=== PATIENT | female | born 1965 | race African-American/Black ===

== ENCOUNTER 2017-12-06 11:15 | Inpatient (IN) | payer OTHER ==
[2017-12-06 12:02] VITALS: BMI 29.2
--- NOTE | 2017-12-06 14:10 | HP ---
COWS - Scale Resting Pulse: 0= [place] 80 or Below Sweatin=Flushed/Facial Moisture Restless Observation: 3= Extraneous Movement Pupil Size: 1= Pupils >than Normal Bone or Joint Aches: 2= Severe Diffuse Aches Runny Nose/ Eye Tearin= Runny Nose/Eyes GI Upset > 30mins: 3= Vomiting/Diarrhea Tremor Observation: 2= Slight Tremor Visible Yawning Observation: 1= 1-2x During Session Anxiety or Irritability: 2=Irritable/Anxious Goose Flesh Skin: 0=Smooth Skin COWS Score: 18 CIWA Score - CIWA Score Nausea/Vomitin Muscle Tremors: 3 Anxiety: 3 Agitation: 3 Paroxysmal Sweats: 2 Orientation: 0-Oriented Tacttile Disturbances: 2-Mild Itch/Numbness/Burn Auditory Disturbances: 2-Mild Harshness/Frighten Visual Disturbances: 0-None Headache: 2-Mild CIWA-Ar Total Score: 20 Admission ROS BHS - HPI Chief Complaint: i need help to stop using heroin and alcohol Allergies/Adverse Reactions: Allergies Allergy/AdvReac Type Severity Reaction Status Date / Time tomato Allergy Severe Hives Verified 12/06/17 14:04 No Known Drug Allergies Allergy Verified 12/06/17 14:04 History of Present Illness: this 52 years old female with heroin dependence and alcohol dependence,seeking detox,withdrawal symptom,hard of hearing, history of asthma,hard of hearing,schizophrenia no significant period of sobriety nicotine dependence positive ppd Exam Limitations: No Limitations - Ebola screening Have you traveled outside of the country in the last 21 days: No (N) Have you had contact with anyone from an Ebola affected area: No Have you been sick,other than usual withdrawal symptoms: No Do you have a fever: No - Review of Systems Constitutional: Chills, Diaphoresis, Loss of Appetite, Night Sweats, Changes in sleep, Weakness EENT: reports: Tearing, Nose Congestion, Other (hard of hearing since childhood) Respiratory: reports: No Symptoms reported Cardiac: reports: No Symptoms Reported GI: reports: Diarrhea, Nausea, Vomiting, Abdominal cramping : reports: No Symptoms Reported Musculoskeletal: reports: Back Pain, Muscle Pain, Joint Stiffness Integumentary: reports: No Symptoms Reported Neuro: reports: Headache, Tremors Endocrine: reports: No Symptoms Reported Hematology: reports: No Symptoms Reported Psychiatric: reports: other (schizophrenia) Patient History - Patient Medical History Hx Anemia: No Hx Asthma: Yes (Pt is on MDI) Hx Chronic Obstructive Pulmonary Disease (COPD): No Hx Cancer: No Hx Cardiac Disorders: No Hx Congestive Heart Failure: No Hx Hypertension: No Hx Hypercholesterolemia: No Hx Pacemaker: No HX Cerebrovascular Accident: No Hx Seizures: No Hx Diabetes: No Hx Gastrointestinal Disorders: No Hx Liver Disease: No Hx Genitourinary Disorders: No Hx Sexually Transmitted Disorders: No Hx Renal Disease (ESRD): No Hx Thyroid Disease: No Hx Human Immunodeficiency Virus (HIV): No (last 06/14) Hx Hepatitis C: No Hx Depression: Yes Hx Suicide Attempt: No Hx Bipolar Disorder: No Hx Schizophrenia: Yes Other Medical History: no suicidal,no homicidal - Patient Surgical History Past Surgical History: No - PPD History Previous Implant?: Yes Documented Results: Positive w/o proof PPD to be Administered?: No - Reproductive History Patient is a Female of Child Bearing Age (11 -55 yrs old): Yes Patient : No - Smoking Cessation Smoking history: Current every day smoker Have you smoked in the past 12 months: Yes Aproximately how many cigarettes per day: 12 Hx Chewing Tobacco Use: No Initiated information on smoking cessation: Yes 'Breaking Loose' booklet given: 12/06/17 - Substances Abused Heroin Route: Inhalation Frequency: Daily Amount used: 3 bags Age of first use: 34 Date of Last Use: 12/06/17 Alcohol Route: Oral Frequency: Daily Amount used: 6pk beer Age of first use: 19 Date of Last Use: 12/06/17 Family Disease History - Family Disease History Family History: Denies Admission Physical Exam [facility] - Vital Signs Vital Signs: Vital Signs - 24 hr 12/06/17 11:59 Temperature 96.8 F L Pulse Rate 72 Respiratory 18 Rate Blood Pressure 140/78 - Physical General Appearance: Yes: Moderate Distress, Tremorous, Irritable, Sweating, Anxious HEENTM: Yes: KEN, Pharynx Normal, Photophobia (hard of hearing since childhood) Respiratory: Yes: Lungs Clear, Normal Breath Sounds, No Respiratory Distress Neck: Yes: Within Normal Limits, Supple, Trachea in good position Breast: Yes: Breast Exam Deferred Cardiology: Yes: Within Normal Limits, Regular Rhythm, Regular Rate, S1, S2 Abdominal: Yes: Within Normal Limits, Non Tender, Flat, Soft Genitourinary: Yes: Within Normal Limits Back: Yes: Muscle Spasm Musculoskeletal: Yes: Back pain, Joint Stiffness, Muscle Pain Extremities: Yes: Tremors Neurological: Yes: Within Normal Limits, [employer] consultant II-XII NML intact, Fully Oriented, Alert Integumentary: Yes: Dry Lymphatic: Yes: Within Normal Limits - Diagnostic (1) Opioid dependence with withdrawal Current Visit: Yes Status: Acute (2) Alcohol dependence with uncomplicated withdrawal Current Visit: Yes Status: Acute (3) Hard of hearing Current Visit: Yes Status: Acute (4) Asthma Current Visit: Yes Status: Acute (5) Paranoid schizophrenia Current Visit: No Status: Acute (6) Nicotine dependence Current Visit: Yes Status: Acute Cleared for Admission [facility] - Detox or Rehab [facility] Level of Care: Medically Managed Detox Regimen/Protocol: Methadone/Librium [facility] Breath Alcohol Content Breath Alcohol Content: 0 Urine Pregancy Test - Result Urine Test Results: Negative- NO Line Present Urine Drug Screen - Results Drug Screen Negative: No Urine Drug Screen Results: OPI-Opiates
[2017-12-06] MEDS ORDERED: P-EPHED 60MG/TRIPROLIDI 2.5MG TABLET PO PRN (14:27)
[2017-12-06] MEDS ORDERED: MAGNESIUM HYDROX 2400MG/30ML ORAL SUSPENSION 30 ML CUP PO PRN (14:27)
[2017-12-06] MEDS ORDERED: MAGNESIUM CITRATE 300 ML BOTTLE PO PRN (14:27)
[2017-12-06] MEDS ORDERED: guaiFENesin/D-METHORPHAN HB 10 ML UNIT-DOSE CUPS PO PRN (14:27)
[2017-12-06] MEDS ORDERED: hydrOXYzine PAMOATE 25 MG CAPSULE (FP) PO PRN (14:27)
[2017-12-06] MEDS ORDERED: chlordiazePOXIDE HCL 25 MG CAPSULE PO PRN (14:27)
[2017-12-06] MEDS ORDERED: MAG HYDROX/AL HYDROX/SIMETH 30 ML UNIT-DOSE CUP PO PRN (14:27)
[2017-12-06] MEDS ORDERED: IBUPROFEN 400 MG TABLET (FP) PO PRN (14:27)
[2017-12-06] MEDS ORDERED: LOPERAMIDE HCL 2 MG CAPSULE PO PRN (14:27)
[2017-12-06] MEDS ORDERED: MENTHOL/PHENOL 1 EACH UD MM PRN (14:27)
[2017-12-06] MEDS ORDERED: ALBUTEROL SO4 18 GM HFA INHALER IH PRN (14:32)
[2017-12-06] MEDS ORDERED: METHADONE HCL 10 MG TABLET (FOR DETOX USE ONLY) PO ONE ×2 (16:15→23:00)
[2017-12-06] MEDS: chlordiazePOXIDE HCL 25 MG CAPSULE PO SCH ×2 (16:56→22:32)
[2017-12-06] MEDS: THIAMINE HCL 100 MG TABLET (FP) PO SCH (22:32)
[2017-12-07 05:04] LABS: URINE APPEARANCE TURBID; URINE BILIRUBIN NEGATIVE (NEGATIVE); URINE BLOOD NEGATIVE (NEGATIVE); URINE COLOR AMBER; URINE GLUCOSE (UA) NEGATIVE (NEGATIVE); URINE KETONE NEGATIVE (NEGATIVE); URINE LEUK ESTERASE NEGATIVE (NEGATIVE); URINE NITRITE NEGATIVE (NEGATIVE); URINE PROTEIN NEGATIVE (NEGATIVE)
[2017-12-07] MEDS: chlordiazePOXIDE HCL 25 MG CAPSULE PO SCH (08:26)
--- NOTE | 2017-12-07 09:59 | PN ---
BHS Progress Note Note: pt states she does not drink any alcohol and only uses heroin. pt states she only said she drinks to get in. Librium d/c and pt in agreement.
[2017-12-07] MEDS ORDERED: METHADONE HCL 10 MG TABLET (FOR DETOX USE ONLY) PO SCH (10:00)
[2017-12-07 10:17] LABS: CHLORIDE 112 mmol/L (98-107); SODIUM 146 mmol/L (136-145)
[2017-12-07 10:26] LABS: ALK PHOS 95 U/L (45-117); ANION GAP 5 (8-16); BILIRUBIN,TOTAL 0.4 mg/dL (0.2-1.0); BLOOD UREA NITROGEN 17 mg/dL (7-18); CALCIUM 8.3 mg/dL (8.5-10.1); CO2 29 mmol/L (21-32); CREATININE 0.5 mg/dL (0.55-1.02); GLUCOSE,RANDOM 81 mg/dL (74-106); SGOT/AST 9 U/L (15-37); SGPT/ALT 33 U/L (12-78); TOT PROT 5.8 g/dl (6.4-8.2)
[2017-12-07 10:34] LABS: HEMATOCRIT 39.5 % (32.4-45.2); HEMOGLOBIN 12.4 GM/dL (10.7-15.3); MCH 26.9 pg (25.7-33.7); MCHC 31.4 g/dl (32.0-36.0); MEAN CELL VOLUME 85.7 fl (80-96); MEAN PLT VOLUME 9.4 fl (7.5-11.1); PLATELET COUNT 197 K/MM3 (134-434); RBC 4.61 M/mm3 (3.60-5.2); RDW 14.6 % (11.6-15.6); WHITE BLOOD COUNT 6.3 K/mm3 (4.0-10.0)
--- NOTE | 2017-12-07 11:27 | PN ---
BHS COWS - Scale Resting Pulse: 1= [place] 81-100 Sweatin=Flushed/Facial Moisture Restless Observation: 1= Difficult to Sit Still Pupil Size: 0= Normal to Room Light Bone or Joint Aches: 2= Severe Diffuse Aches Runny Nose/ Eye Tearin= Nasal Congestion GI Upset > 30mins: 0= None Tremor Observation of Outstretched Hands: 4= Gross Tremor/Twitching Yawning Observation: 2= >3x During Session Anxiety or Irritability: 2=Irritable/Anxious Goose Flesh Skin: 0=Smooth Skin COWS Score: 15 BHS Progress Note (SOAP) Subjective: interrupted sleep agitation restless I dont drink any alcohol and I dont want the librium. I will need the methadone Objective: 12/07/17 11:29 Vital Signs Temperature 97.1 F L 12/07/17 06:00 Pulse Rate 55 L 12/07/17 06:00 Respiratory Rate 18 12/07/17 06:00 Blood Pressure 121/71 12/07/17 06:00 O2 Sat by Pulse Oximetry (%) Laboratory Tests 12/06/17 12/07/17 12/07/17 06:30 08:00 08:00 WBC 6.3 RBC 4.61 Hgb 12.4 Hct 39.5 MCV 85.7 MCH 26.9 MCHC 31.4 L RDW 14.6 Plt Count 197 MPV 9.4 Sodium 146 H Potassium 4.0 Chloride 112 H Carbon Dioxide 29 Anion Gap 5 L BUN 17 D Creatinine 0.5 L D Creat Clearance w eGFR > 60 Random Glucose 81 Calcium 8.3 L Total Bilirubin 0.4 D AST 9 L D ALT 33 Alkaline Phosphatase 95 Total Protein 5.8 L Albumin 3.0 L Urine Color Zaria Urine Appearance Turbid Urine pH 5.0 Ur Specific [place] 1.020 Urine Protein Negative Urine Glucose (UA) Negative Urine Ketones Negative Urine Blood Negative Urine Nitrite Negative Urine Bilirubin Negative Urine Urobilinogen 2.0 H Ur Leukocyte Esterase Negative aaox3 ambulating no acute distress Assessment: 12/07/17 11:29 withdrawal sx Plan: continue detox librium d/c continue methadone taper increase fluids
[2017-12-07] MEDS: PRENATAL VITAMINS W/ FOLIC ACID TABLET (FP) PO SCH (11:36)
[2017-12-07] MEDS: amLODIPine BESYLATE 5 MG TABLET (FP) PO SCH (11:37)
[2017-12-07 12:45] LABS: RPR REACTIVE 1:1 (NONREACTIVE)
[2017-12-07 12:47] LABS: TREPONEMA ANTIBODY PREVIOUSLY REACTIVE (NONREACTIVE)
--- NOTE | 2017-12-07 15:19 | EKG ---
Test Reason : Blood Pressure : / mmHG Vent. Rate : 050 BPM Atrial Rate : 050 BPM P-R Int : 176 ms QRS Dur : 084 ms QT Int : 468 ms P-R-T Axes : 053 078 047 degrees QTc Int : 426 ms SINUS BRADYCARDIA POSSIBLE LEFT ATRIAL ENLARGEMENT BORDERLINE ECG NO PREVIOUS ECGS AVAILABLE Confirmed by Piyush Hill MD ([id number]) on 12/07/2017 3:19:05 PM Referred By: Confirmed By:Piyush Hill MD
--- NOTE | 2017-12-07 15:25 | CONSULT ---
[facility] Psychiatric Consult - Data Date of interview: 12/07/17 Admission source: [facility] Identifying data: Pt. is a 52 year old female, mother of seven, unemployed and on disability. This is one of multiple admissions for patient. Pt. admitted to for heroin and alcohol dependence. Substance Abuse History: Following information confirmed with patient: - Smoking Cessation. Smoking history: Current every day smoker. Have you smoked in the past 12 months: Yes. Aproximately how many cigarettes per day: 12. Hx Chewing Tobacco Use: No. Initiated information on smoking cessation: Yes. ' Breaking Loose' booklet given: 12/06/17. - Substances Abused. Heroin. Route: Inhalation. Frequency: Daily. Amount used: 3 bags. Age of first use: 34. Date of Last Use: 12/06/17. Alcohol. Route: Oral. Frequency: Daily. Amount used: 6pk beer. Age of first use: 19. Date of Last Use: 12/06/17 Medical History: Asthma Psychiatric History: Pt. reports h/o one psychiatric hospitalization, " a long time ago." Reports taking risperdal 2mg qhs since may but has not taken it everyday due to a lack of pills. States last taking risperdal 10 days ago. Reports a diagnosis of schizophrenia and bipolar disorder. Pt. denies OPC and suicide attempts. Pt. denies sucidial and homicidal ideation. Physical/Sexual Abuse/Trauma History: Denies. Mental Status Exam - Mental Status Exam Alert and Oriented to: Time, Place, Person Cognitive Function: Good Patient Appearance: Well Groomed Mood: Euthymic Affect: Mood Congruent Patient Behavior: Cooperative Speech Pattern: Delayed Voice Loudness: Normal Thought Process: Goal Oriented Thought Disorder: Not Present Hallucinations: Denies Suicidal Ideation: Denies Homicidal Ideation: Denies Insight/Judgement: Poor Sleep: Fair Appetite: Fair Muscle strength/Tone: Normal Gait/Station: Normal Psychiatric Findings - Problem List ([place] 1, 2,3) (1) Opioid dependence with withdrawal Current Visit: Yes Status: Acute (2) Alcohol dependence with uncomplicated withdrawal Current Visit: Yes Status: Acute (3) Schizophrenia Current Visit: Yes Status: Chronic (4) Bipolar disorder Current Visit: Yes Status: Chronic (5) Nicotine dependence Current Visit: Yes Status: Chronic Qualifiers: Nicotine product type: cigarettes Substance use status: uncomplicated Qualified Code(s): F17.210 - Nicotine dependence, cigarettes, uncomplicated - Initial Treatment Plan Initial Treatment Plan: Psychoeducation provided. Detoxification in progress. Risperdal 1mg BID ordered. Pharmacy claims reviewed. Verbal consent given. Benefits and side effects discussed. Will continue to monitor.
[2017-12-07] MEDS ORDERED: chlordiazePOXIDE HCL 25 MG CAPSULE PO SCH (17:00)
[2017-12-07] MEDS ORDERED: risperiDONE 2 MG TABLET PO SCH (22:00)
[2017-12-07] MEDS: risperiDONE 1 MG TABLET (FP) PO SCH (22:37)
[2017-12-07] MEDS: THIAMINE HCL 100 MG TABLET (FP) PO SCH (22:37)
[2017-12-08] MEDS: PRENATAL VITAMINS W/ FOLIC ACID TABLET (FP) PO SCH (10:46)
[2017-12-08] MEDS: amLODIPine BESYLATE 5 MG TABLET (FP) PO SCH (10:46)
[2017-12-08] MEDS: risperiDONE 1 MG TABLET (FP) PO SCH ×2 (10:46→22:19)
[2017-12-08] MEDS: METHADONE HCL 5 MG TABLET (FOR DETOX USE ONLY) PO SCH (10:47)
--- NOTE | 2017-12-08 11:10 | PN ---
BHS COWS - Scale Resting Pulse: 0= [place] 80 or Below Sweatin= Chills/Flushing Restless Observation: 1= Difficult to Sit Still Pupil Size: 0= Normal to Room Light Bone or Joint Aches: 1= Mild Discomfort Runny Nose/ Eye Tearin= Nasal Congestion GI Upset > 30mins: 1= Stomach Cramp Tremor Observation of Outstretched Hands: 2= Slight Tremor Visible Yawning Observation: 0= None Anxiety or Irritability: 2=Irritable/Anxious Goose Flesh Skin: 0=Smooth Skin COWS Score: 9 BHS Progress Note (SOAP) Subjective: sleepless Objective: 12/08/17 11:08 in hallway, no acute distress mood guarded Laboratory Last Values WBC 6.3 K/mm3 (4.0-10.0) 12/07/17 08:00 RBC 4.61 M/mm3 (3.60-5.2) 12/07/17 08:00 Hgb 12.4 GM/dL (10.7-15.3) 12/07/17 08:00 Hct 39.5 % (32.4-45.2) 12/07/17 08:00 MCV 85.7 fl (80-96) 12/07/17 08:00 MCH 26.9 pg (25.7-33.7) 12/07/17 08:00 MCHC 31.4 g/dl (32.0-36.0) L 12/07/17 08:00 RDW 14.6 % (11.6-15.6) 12/07/17 08:00 Plt Count 197 K/MM3 (134-434) 12/07/17 08:00 MPV 9.4 fl (7.5-11.1) 12/07/17 08:00 Sodium 146 mmol/L (136-145) H 12/07/17 08:00 Potassium 4.0 mmol/L (3.5-5.1) 12/07/17 08:00 Chloride 112 mmol/L (98-107) H 12/07/17 08:00 Carbon Dioxide 29 mmol/L (21-32) 12/07/17 08:00 Anion Gap 5 (8-16) L 12/07/17 08:00 BUN 17 mg/dL (7-18) D 12/07/17 08:00 Creatinine 0.5 mg/dL (0.55-1.02) L D 12/07/17 08:00 Creat Clearance w eGFR > 60 (>60) 12/07/17 08:00 Random Glucose 81 mg/dL (74-106) 12/07/17 08:00 Calcium 8.3 mg/dL (8.5-10.1) L 12/07/17 08:00 Total Bilirubin 0.4 mg/dL (0.2-1.0) D 12/07/17 08:00 AST 9 U/L (15-37) L D 12/07/17 08:00 ALT 33 U/L (12-78) 12/07/17 08:00 Alkaline Phosphatase 95 U/L (45-117) 12/07/17 08:00 Total Protein 5.8 g/dl (6.4-8.2) L 12/07/17 08:00 Albumin 3.0 g/dl (3.4-5.0) L 12/07/17 08:00 Urine Color Zaria 12/06/17 06:30 Urine Appearance Turbid 12/06/17 06:30 Urine pH 5.0 (5.0-8.0) 12/06/17 06:30 Ur Specific [place] 1.020 (1.001-1.035) 12/06/17 06:30 Urine Protein Negative (NEGATIVE) 12/06/17 06:30 Urine Glucose (UA) Negative (NEGATIVE) 12/06/17 06:30 Urine Ketones Negative (NEGATIVE) 12/06/17 06:30 Urine Blood Negative (NEGATIVE) 12/06/17 06:30 Urine Nitrite Negative (NEGATIVE) 12/06/17 06:30 Urine Bilirubin Negative (NEGATIVE) 12/06/17 06:30 Urine Urobilinogen 2.0 mg/dL (0.2-1.0) H 12/06/17 06:30 Ur Leukocyte Esterase Negative (NEGATIVE) 12/06/17 06:30 RPR Titer Reactive 1:1 (NONREACTIVE) H D 12/07/17 08:00 T.pallidum Ab (MHA) Previously reactive (NONREACTIVE) 12/07/17 08:00 HIV 1&2 Antibody Screen Negative 12/06/17 08:00 HIV P24 Antigen Negative 12/06/17 08:00 labs noted Assessment: 12/08/17 11:10 withdrawal sx Plan: continue detox
[2017-12-08] MEDS ORDERED: chlordiazePOXIDE 5 MG CAPSULE PO SCH (17:00)
[2017-12-08] MEDS: THIAMINE HCL 100 MG TABLET (FP) PO SCH (22:19)
[2017-12-09] MEDS: amLODIPine BESYLATE 5 MG TABLET (FP) PO SCH (11:24)
[2017-12-09] MEDS: METHADONE HCL 5 MG TABLET (FOR DETOX USE ONLY) PO SCH (11:24)
[2017-12-09] MEDS: risperiDONE 1 MG TABLET (FP) PO SCH ×2 (11:24→23:16)
[2017-12-09] MEDS: PRENATAL VITAMINS W/ FOLIC ACID TABLET (FP) PO SCH (11:24)
--- NOTE | 2017-12-09 12:42 | PN ---
BHS Progress Note (SOAP) Subjective: sweats feeling fine anxiety Objective: 12/09/17 12:41 Vital Signs Temperature 98.4 F 12/09/17 10:17 Pulse Rate 77 12/09/17 10:17 Respiratory Rate 18 12/09/17 10:17 Blood Pressure 139/85 12/09/17 10:17 O2 Sat by Pulse Oximetry (%) aaox3 ambulating no acute distress Assessment: 12/09/17 12:42 mild withdrawal sx Plan: continue detox increase fluids
[2017-12-09] MEDS ORDERED: chlordiazePOXIDE HCL 10 MG CAPSULE PO SCH (17:00)
[2017-12-09] MEDS: THIAMINE HCL 100 MG TABLET (FP) PO SCH (23:16)
[2017-12-10] MEDS: ACETAMINOPHEN 325 MG TABLET (FP) PO PRN ×2 (07:04→22:35)
[2017-12-10] MEDS ORDERED: METHADONE HCL 10 MG TABLET (FOR DETOX USE ONLY) PO SCH (10:00)
[2017-12-10] MEDS: amLODIPine BESYLATE 5 MG TABLET (FP) PO SCH (10:52)
[2017-12-10] MEDS: PRENATAL VITAMINS W/ FOLIC ACID TABLET (FP) PO SCH (10:52)
[2017-12-10] MEDS: risperiDONE 1 MG TABLET (FP) PO SCH ×2 (10:52→22:33)
--- NOTE | 2017-12-10 13:41 | PN ---
BHS Progress Note (SOAP) Subjective: feeling good little sweats Objective: 12/10/17 13:37 Vital Signs Temperature 99.7 F H 12/10/17 10:44 Pulse Rate 74 12/10/17 10:44 Respiratory Rate 18 12/10/17 10:44 Blood Pressure 111/68 12/10/17 10:44 O2 Sat by Pulse Oximetry (%) aaox3 ambulating no acute distress Assessment: 12/10/17 13:41 withdrawal sx Plan: continue detox d/c in am
[2017-12-10] MEDS: THIAMINE HCL 100 MG TABLET (FP) PO SCH (22:34)
[2017-12-11] MEDS ORDERED: METHADONE HCL 5 MG TABLET (FOR DETOX USE ONLY) PO SCH (06:00)
--- NOTE | 2017-12-11 08:39 | DS ---
[facility] Detox Discharge Summary Admission Date: 12/06/17 Discharge Date: 12/11/17 - History Present History: Alcohol Dependence, Opioid Dependence Pertinent Past History: Asthma Hard of hearing - Physical Exam Results Vital Signs: Vital Signs Temperature 98.2 F 12/11/17 06:00 Pulse Rate 66 12/11/17 06:00 Respiratory Rate 18 12/11/17 06:00 Blood Pressure 125/84 12/11/17 06:00 O2 Sat by Pulse Oximetry (%) Pertinent Admission Physical Exam Findings: withdrawal sx Vital Signs Temperature 98.2 F 12/11/17 06:00 Pulse Rate 66 12/11/17 06:00 Respiratory Rate 18 12/11/17 06:00 Blood Pressure 125/84 12/11/17 06:00 O2 Sat by Pulse Oximetry (%) Laboratory Last Values WBC 6.3 K/mm3 (4.0-10.0) 12/07/17 08:00 RBC 4.61 M/mm3 (3.60-5.2) 12/07/17 08:00 Hgb 12.4 GM/dL (10.7-15.3) 12/07/17 08:00 Hct 39.5 % (32.4-45.2) 12/07/17 08:00 MCV 85.7 fl (80-96) 12/07/17 08:00 MCH 26.9 pg (25.7-33.7) 12/07/17 08:00 MCHC 31.4 g/dl (32.0-36.0) L 12/07/17 08:00 RDW 14.6 % (11.6-15.6) 12/07/17 08:00 Plt Count 197 K/MM3 (134-434) 12/07/17 08:00 MPV 9.4 fl (7.5-11.1) 12/07/17 08:00 Sodium 146 mmol/L (136-145) H 12/07/17 08:00 Potassium 4.0 mmol/L (3.5-5.1) 12/07/17 08:00 Chloride 112 mmol/L (98-107) H 12/07/17 08:00 Carbon Dioxide 29 mmol/L (21-32) 12/07/17 08:00 Anion Gap 5 (8-16) L 12/07/17 08:00 BUN 17 mg/dL (7-18) D 12/07/17 08:00 Creatinine 0.5 mg/dL (0.55-1.02) L D 12/07/17 08:00 Creat Clearance w eGFR > 60 (>60) 12/07/17 08:00 Random Glucose 81 mg/dL (74-106) 12/07/17 08:00 Calcium 8.3 mg/dL (8.5-10.1) L 12/07/17 08:00 Total Bilirubin 0.4 mg/dL (0.2-1.0) D 12/07/17 08:00 AST 9 U/L (15-37) L D 12/07/17 08:00 ALT 33 U/L (12-78) 12/07/17 08:00 Alkaline Phosphatase 95 U/L (45-117) 12/07/17 08:00 Total Protein 5.8 g/dl (6.4-8.2) L 12/07/17 08:00 Albumin 3.0 g/dl (3.4-5.0) L 12/07/17 08:00 Urine Color Zaria 12/06/17 06:30 Urine Appearance Turbid 12/06/17 06:30 Urine pH 5.0 (5.0-8.0) 12/06/17 06:30 Ur Specific [place] 1.020 (1.001-1.035) 12/06/17 06:30 Urine Protein Negative (NEGATIVE) 12/06/17 06:30 Urine Glucose (UA) Negative (NEGATIVE) 12/06/17 06:30 Urine Ketones Negative (NEGATIVE) 12/06/17 06:30 Urine Blood Negative (NEGATIVE) 12/06/17 06:30 Urine Nitrite Negative (NEGATIVE) 12/06/17 06:30 Urine Bilirubin Negative (NEGATIVE) 12/06/17 06:30 Urine Urobilinogen 2.0 mg/dL (0.2-1.0) H 12/06/17 06:30 Ur Leukocyte Esterase Negative (NEGATIVE) 12/06/17 06:30 RPR Titer Reactive 1:1 (NONREACTIVE) H D 12/07/17 08:00 T.pallidum Ab (MHA) Previously reactive (NONREACTIVE) 12/07/17 08:00 HIV 1&2 Antibody Screen Negative 12/06/17 08:00 HIV P24 Antigen Negative 12/06/17 08:00 labs noted - Treatment Hospital Course: Detox Protocol Followed, Detoxed Safely, Responded well, Discharged Condition Good, Rehab Referral Accepted Patient has Accepted a Rehab Referral to: [facility] re[facility] - [facility] - Medication Discharge Medications: Ambulatory Orders Albuterol Sulfate [Proair Hfa -] 2 inh PO Q6H PRN 03/06/15 Amlodipine Besylate [Norvasc -] 5 mg PO DAILY 12/06/17 Hydroxyzine HCl 50 mg PO HS 12/06/17 Risperidone [Risperdal -] 2 mg PO HS 12/06/17 - Diagnosis (1) Opioid dependence with withdrawal Current Visit: Yes Status: Acute (2) Nicotine dependence Current Visit: Yes Status: Chronic Qualifiers: Nicotine product type: cigarettes Substance use status: uncomplicated Qualified Code(s): F17.210 - Nicotine dependence, cigarettes, uncomplicated - AMA Did Patient Leave Against Medical Advice: No
[2017-12-11] MEDS: amLODIPine BESYLATE 5 MG TABLET (FP) PO SCH (10:41)
[2017-12-11] MEDS: risperiDONE 1 MG TABLET (FP) PO SCH (10:41)
[2017-12-11] MEDS: PRENATAL VITAMINS W/ FOLIC ACID TABLET (FP) PO SCH (10:41)
[2017-12-11 10:46] VITALS: BP 130/79; PULSE 79; TEMP 98.9
== END 2017-12-11 11:56 | disposition home or self-care (01) | DRG 773 ==
LOC: YASAS 11:15 → Y6N 15:08
PROVIDERS: ADMIT Internal Medicine; ATTEND Internal Medicine
PROC: HZ2ZZZZ Detoxification Services for Substance Abuse Treatment (ICD-10-PCS; principal; 2017-12-06)
DX: F11.23 Opioid dependence with withdrawal (principal); F17.210 Nicotine dependence, cigarettes, uncomplicated; F31.9 Bipolar disorder, unspecified; F20.0 Paranoid schizophrenia; I10 Essential (primary) hypertension; H91.90 Unspecified hearing loss, unspecified ear
CPT/HCPCS: 36415; 80053; 81003; 85027; 86593; 86780; 87389; 93005; 93010; J2794

== ENCOUNTER 2018-07-09 08:23 | Inpatient (IN) | payer OTHER ==
[2018-07-09 09:23] VITALS: BMI 29.2
--- NOTE | 2018-07-09 09:59 | HP ---
COWS - Scale Resting Pulse: 0= [place] 80 or Below Sweatin= No chills or Flushing Restless Observation: 1= Difficult to Sit Still Pupil Size: 0= Normal to Room Light Bone or Joint Aches: 1= Mild Discomfort Runny Nose/ Eye Tearin= Nasal Congestion GI Upset > 30mins: 1= Stomach Cramp Tremor Observation: 1= Tremor [place], Not Seen Yawning Observation: 1= 1-2x During Session Anxiety or Irritability: 1=Feels Anxious/Irritable Goose Flesh Skin: 0=Smooth Skin COWS Score: 7 Admission ROS BHS - HPI Chief Complaint: I want help, I want detox, I'm messing with that heroin again Allergies/Adverse Reactions: Allergies Allergy/AdvReac Type Severity Reaction Status Date / Time tomato Allergy Severe Hives Verified 12/06/17 14:04 No Known Drug Allergies Allergy Verified 12/06/17 14:04 History of Present Illness: 52 yo woman here for detox from opiates - patient was on [facility] methadone program but she went off it thinking she was moving to [place] with her daughter but plans changed - I spoke with TERI Witt, of Methadone Program who verified her last dose of methadone was on 06/28/18 and she would have to be re- evaluated for the program. She states she had a seizure a week ago from using and also an overdose which was a 'wake up' for her to get help. Exam Limitations: Clinical Condition - Ebola screening Have you traveled outside of the country in the last 21 days: No Have you had contact with anyone from an Ebola affected area: No Have you been sick,other than usual withdrawal symptoms: No - Review of Systems Constitutional: Loss of Appetite, Night Sweats, Changes in sleep EENT: reports: Nose Congestion, Other (reduced hearing) Respiratory: reports: No Symptoms reported Cardiac: reports: No Symptoms Reported GI: reports: Poor Appetite, Indigestion : reports: No Symptoms Reported Musculoskeletal: reports: Back Pain, Muscle Pain Integumentary: reports: No Symptoms Reported Neuro: reports: No Symptoms reported Endocrine: reports: No Symptoms Reported Hematology: reports: No Symptoms Reported Psychiatric: reports: Judgement Intact, Mood/Affect Appropiate Other Systems: Reviewed and Negative Patient History - Patient Medical History Hx Anemia: No Hx Asthma: Yes (Pt is on MDI) Hx Chronic Obstructive Pulmonary Disease (COPD): No Hx Cancer: No Hx Cardiac Disorders: No Hx Congestive Heart Failure: No Hx Hypertension: No Hx Hypercholesterolemia: No Hx Pacemaker: No HX Cerebrovascular Accident: No Hx Seizures: Yes (last time a week ago) Hx Diabetes: No Hx Gastrointestinal Disorders: No Hx Liver Disease: No Hx Genitourinary Disorders: No Hx Sexually Transmitted Disorders: No Hx Renal Disease (ESRD): No Hx Thyroid Disease: No Hx Human Immunodeficiency Virus (HIV): No (last 06/14) Hx Hepatitis C: No Hx Depression: Yes Hx Suicide Attempt: Yes (in her 20s) Hx Bipolar Disorder: No Hx Schizophrenia: Yes (hospitalized in her 20s, sees psych [facility]) - Patient Surgical History Past Surgical History: No Hx Section: Yes (21 yrs ago.) - PPD History Previous Implant?: Yes Documented Results: Positive w/o proof Date: 12/29/17 (CXR normal) PPD to be Administered?: No - Reproductive History Patient is a Female of Child Bearing Age (11 -55 yrs old): Yes - Smoking Cessation Smoking history: Current every day smoker Have you smoked in the past 12 months: Yes Aproximately how many cigarettes per day: 12 Hx Chewing Tobacco Use: No Initiated information on smoking cessation: Yes 'Breaking Loose' booklet given: 07/09/18 (give on floor) - Substance & Tx. History Hx Alcohol Use: No Hx Substance Use: Yes Substance Use Type: Cocaine, Heroin Hx Substance Use Treatment: Yes (detox, methadone program) - Substances Abused heroin Route: Inhalation Frequency: Daily Amount used: 4 bags Age of first use: 29 Date of Last Use: 07/08/18 cocaine Frequency: Daily Amount used: $400 Age of first use: 20 Date of Last Use: 07/08/18 alcohol Route: Oral Frequency: 1-3 times last 30 days Amount used: 1 shot Age of first use: 20 Date of Last Use: 07/06/18 Family Disease History - Family Disease History Family History: Denies Family Disease History: Other: Father (murdered), Mother (murdered), Brother ( seven), Sister (nine), Son (four), Daughter (three) Admission Physical Exam BHS - Vital Signs Vital Signs: Vital Signs - 24 hr 07/09/18 09:15 Temperature 98.4 F Pulse Rate 70 Respiratory 20 Rate Blood Pressure 159/83 - Physical General Appearance: Yes: Nourished, Appropriately Dressed, Moderate Distress, Anxious HEENTM: Yes: Normocephalic, Normal Voice, Pharynx Normal, Other (REDUCED HEARING ) Respiratory: Yes: Normal Breath Sounds, No Respiratory Distress Neck: Yes: No masses,lesions,Nodules, Supple Breast: Yes: Breast Exam Deferred Cardiology: Yes: Regular Rhythm, Regular Rate Abdominal: Yes: Flat, Soft Genitourinary: Yes: Hesitency Back: Yes: Normal Inspection Extremities: Yes: Normal Inspection, Non-Tender Neurological: Yes: Alert, Normal Mood/Affect, Normal Response Integumentary: Yes: Normal Color, Warm Lymphatic: Yes: Within Normal Limits - Diagnostic (1) Opioid dependence with withdrawal Current Visit: Yes Status: Acute (2) PPD positive Current Visit: Yes Status: Chronic (3) Cocaine dependence Current Visit: Yes Status: Chronic Qualifiers: Substance use status: uncomplicated Qualified Code(s): F14.20 - Cocaine dependence, uncomplicated (4) Hard of hearing Current Visit: Yes Status: Acute Qualifiers: Contralateral hearing status: unspecified (5) Asthma Current Visit: Yes Status: Chronic Qualifiers: Asthma severity: mild Asthma complication type: unspecified (6) Nicotine dependence Current Visit: Yes Status: Chronic Qualifiers: Nicotine product type: cigarettes Substance use status: uncomplicated Qualified Code(s): F17.210 - Nicotine dependence, cigarettes, uncomplicated Cleared for Admission [facility] - Detox or Rehab [facility] Level of Care: Medically Managed Detox Regimen/Protocol: Methadone [facility] Breath Alcohol Content Breath Alcohol Content: 0 Urine Pregancy Test - Result Urine Test Results: Negative- NO Line Present Urine Drug Screen - Results Urine Drug Screen Results: CAITLIN-Cocaine, OPI-Opiates, MTD-Methadone, OXY- Oxycodone
[2018-07-09] MEDS ORDERED: P-EPHED 60MG/TRIPROLIDI 2.5MG TABLET PO PRN (10:11)
[2018-07-09] MEDS ORDERED: guaiFENesin/D-METHORPHAN HB 10 ML UNIT-DOSE CUPS PO PRN (10:11)
[2018-07-09] MEDS ORDERED: ACETAMINOPHEN 325 MG TABLET (FP) PO PRN (10:11)
[2018-07-09] MEDS ORDERED: hydrOXYzine PAMOATE 25 MG CAPSULE (FP) PO PRN (10:11)
[2018-07-09] MEDS ORDERED: MAG HYDROX/AL HYDROX/SIMETH 30 ML UNIT-DOSE CUP PO PRN (10:11)
[2018-07-09] MEDS ORDERED: MAGNESIUM CITRATE 300 ML BOTTLE PO PRN (10:11)
[2018-07-09] MEDS ORDERED: NICOTINE POLACRILEX 2 MG GUM BUC PRN (10:11)
[2018-07-09] MEDS ORDERED: IBUPROFEN 400 MG TABLET (FP) PO PRN (10:11)
[2018-07-09] MEDS ORDERED: MENTHOL/PHENOL 1 EACH UD MM PRN (10:11)
[2018-07-09] MEDS ORDERED: LOPERAMIDE HCL 2 MG CAPSULE PO PRN (10:11)
[2018-07-09] MEDS ORDERED: diazePAM 5 MG TABLET PO PRN (10:11)
[2018-07-09] MEDS ORDERED: MAGNESIUM HYDROX 2400MG/30ML ORAL SUSPENSION 30 ML CUP PO PRN (10:11)
[2018-07-09] MEDS ORDERED: METHADONE HCL 10 MG TABLET (FOR DETOX USE ONLY) PO ONE ×2 (10:45→23:00)
[2018-07-09] MEDS: NICOTINE 21 MG/24 HOURS TOPICAL PATCH TD SCH (13:42)
[2018-07-09] MEDS: amLODIPine BESYLATE 5 MG TABLET (FP) PO SCH (13:42)
[2018-07-09] MEDS ORDERED: MELATONIN 5 MG TABLETS PO PRN (22:00)
[2018-07-09] MEDS ORDERED: THIAMINE HCL 100 MG TABLET (FP) PO SCH (22:00)
--- NOTE | 2018-07-10 08:57 | EKG ---
Test Reason : Blood Pressure : / mmHG Vent. Rate : 067 BPM Atrial Rate : 067 BPM P-R Int : 156 ms QRS Dur : 092 ms QT Int : 500 ms P-R-T Axes : 024 076 074 degrees QTc Int : 528 ms NORMAL SINUS RHYTHM PROLONGED QT ABNORMAL ECG WHEN COMPARED WITH ECG OF 06-DEC-2017 17:08, QT HAS LENGTHENED Confirmed by ISABELLA GODOY, KAVON ([id number]) on 07/10/2018 8:57:25 AM Referred By: Ildefonso Zhong Confirmed By:KAVON MASON MD
[2018-07-10] MEDS ORDERED: METHADONE HCL 10 MG TABLET (FOR DETOX USE ONLY) PO ONE (10:00)
[2018-07-10] MEDS ORDERED: PRENATAL VITAMINS W/ FOLIC ACID TABLET (FP) PO SCH (10:00)
[2018-07-10 10:52] LABS: HEMATOCRIT 41.1 % (32.4-45.2); HEMOGLOBIN 13.4 GM/dL (10.7-15.3); MCH 28.3 pg (25.7-33.7); MCHC 32.5 g/dl (32.0-36.0); MEAN PLT VOLUME 9.2 fl (7.5-11.1); PLATELET COUNT 188 K/MM3 (134-434); RBC 4.73 M/mm3 (3.60-5.2); RDW 13.6 % (11.6-15.6); WHITE BLOOD COUNT 8.4 K/mm3 (4.0-10.0)
[2018-07-10 11:00] LABS: ALBUMIN 3.4 g/dl (3.4-5.0); ALK PHOS 80 U/L (45-117); ANION GAP 4 (8-16); BILIRUBIN,TOTAL 0.4 mg/dL (0.2-1.0); BLOOD UREA NITROGEN 14 mg/dL (7-18); CALCIUM 8.9 mg/dL (8.5-10.1); CHLORIDE 115 mmol/L (98-107); CO2 32 mmol/L (21-32); CREATININE 0.7 mg/dL (0.55-1.02); GLUCOSE,RANDOM 82 mg/dL (74-106); POTASSIUM 3.9 mmol/L (3.5-5.1); SGOT/AST 12 U/L (15-37); SGPT/ALT 18 U/L (12-78); SODIUM 151 mmol/L (136-145); TOT PROT 6.3 g/dl (6.4-8.2)
[2018-07-10] MEDS: NICOTINE 21 MG/24 HOURS TOPICAL PATCH TD SCH (11:59)
[2018-07-10] MEDS: amLODIPine BESYLATE 5 MG TABLET (FP) PO SCH (12:00)
[2018-07-10 12:48] LABS: RPR REACTIVE 1:1 (NONREACTIVE)
[2018-07-10 12:49] LABS: TREPONEMA ANTIBODY PREVIOUSLY REACTIVE (NONREACTIVE)
[2018-07-10 14:06] VITALS: BP 141/76; PULSE 59; TEMP 98.2
--- NOTE | 2018-07-10 15:12 | CONSULT ---
[facility] Psychiatric Consult - Data Date of interview: 07/10/18 Admission source: self-referred Identifying data: Ms Ybarra is a 52 years old female seeking detox treatment for alcohol opioid and cocaine Substance Abuse History: Reports history of alcohol, heroin and cocaine use. Refer to addiction counselor's summary for furthr information Medical History: Significant for bronchial asthma, seizure disorder and PPD+. Smokes 12 cigarettes daily
--- NOTE | 2018-07-10 15:21 | PN ---
S COWS - Scale Resting Pulse: 0= [place] 80 or Below Sweatin=Flushed/Facial Moisture Restless Observation: 3= Extraneous Movement Pupil Size: 1= Pupils >than Normal Bone or Joint Aches: 1= Mild Discomfort Runny Nose/ Eye Tearin= Nasal Congestion GI Upset > 30mins: 2= Nausea/Diarrhea Tremor Observation of Outstretched Hands: 2= Slight Tremor Visible Yawning Observation: 1= 1-2x During Session Anxiety or Irritability: 2=Irritable/Anxious Goose Flesh Skin: 3=Piloerection COWS Score: 18 BHS Progress Note (SOAP) Subjective: Irritable, diarrhea, muscle aches Objective: 07/10/18 15:20 Vital Signs - 8 hr 07/10/18 07/10/18 10:46 14:03 Temperature 98.1 F 98.2 F Pulse Rate 54 L 59 L Respiratory 16 16 Rate Blood Pressure 159/75 141/76 Laboratory Last Values WBC 8.4 K/mm3 (4.0-10.0) 07/10/18 08:00 RBC 4.73 M/mm3 (3.60-5.2) 07/10/18 08:00 Hgb 13.4 GM/dL (10.7-15.3) 07/10/18 08:00 Hct 41.1 % (32.4-45.2) 07/10/18 08:00 MCV 87.0 fl (80-96) 07/10/18 08:00 MCH 28.3 pg (25.7-33.7) 07/10/18 08:00 MCHC 32.5 g/dl (32.0-36.0) 07/10/18 08:00 RDW 13.6 % (11.6-15.6) 07/10/18 08:00 Plt Count 188 K/MM3 (134-434) 07/10/18 08:00 MPV 9.2 fl (7.5-11.1) 07/10/18 08:00 Sodium 151 mmol/L (136-145) H 07/10/18 08:00 Potassium 3.9 mmol/L (3.5-5.1) 07/10/18 08:00 Chloride 115 mmol/L (98-107) H 07/10/18 08:00 Carbon Dioxide 32 mmol/L (21-32) 07/10/18 08:00 Anion Gap 4 (8-16) L 07/10/18 08:00 BUN 14 mg/dL (7-18) 07/10/18 08:00 Creatinine 0.7 mg/dL (0.55-1.02) 07/10/18 08:00 Creat Clearance w eGFR > 60 (>60) 07/10/18 08:00 Random Glucose 82 mg/dL (74-106) 07/10/18 08:00 Calcium 8.9 mg/dL (8.5-10.1) 07/10/18 08:00 Total Bilirubin 0.4 mg/dL (0.2-1.0) 07/10/18 08:00 AST 12 U/L (15-37) L 07/10/18 08:00 ALT 18 U/L (12-78) 07/10/18 08:00 Alkaline Phosphatase 80 U/L (45-117) 07/10/18 08:00 Total Protein 6.3 g/dl (6.4-8.2) L 07/10/18 08:00 Albumin 3.4 g/dl (3.4-5.0) 07/10/18 08:00 RPR Titer Reactive 1:1 (NONREACTIVE) H 07/10/18 08:00 T.pallidum Ab (MHA) Previously reactive (NONREACTIVE) 07/10/18 08:00 Labs noted-RPR Reactive h/o syphilis Assessment: 07/10/18 15:21 Withdrawal sx Plan: Continue detox
--- NOTE | 2018-07-10 15:23 | DS ---
[facility] Detox Discharge Summary Admission Date: 07/09/18 - Physical Exam Results Vital Signs: Vital Signs Temperature 98.2 F 07/10/18 14:03 Pulse Rate 59 L 07/10/18 14:03 Respiratory Rate 16 07/10/18 14:03 Blood Pressure 141/76 07/10/18 14:03 O2 Sat by Pulse Oximetry (%) Pertinent Admission Physical Exam Findings: Withdrawal sx Laboratory Last Values WBC 8.4 K/mm3 (4.0-10.0) 07/10/18 08:00 RBC 4.73 M/mm3 (3.60-5.2) 07/10/18 08:00 Hgb 13.4 GM/dL (10.7-15.3) 07/10/18 08:00 Hct 41.1 % (32.4-45.2) 07/10/18 08:00 MCV 87.0 fl (80-96) 07/10/18 08:00 MCH 28.3 pg (25.7-33.7) 07/10/18 08:00 MCHC 32.5 g/dl (32.0-36.0) 07/10/18 08:00 RDW 13.6 % (11.6-15.6) 07/10/18 08:00 Plt Count 188 K/MM3 (134-434) 07/10/18 08:00 MPV 9.2 fl (7.5-11.1) 07/10/18 08:00 Sodium 151 mmol/L (136-145) H 07/10/18 08:00 Potassium 3.9 mmol/L (3.5-5.1) 07/10/18 08:00 Chloride 115 mmol/L (98-107) H 07/10/18 08:00 Carbon Dioxide 32 mmol/L (21-32) 07/10/18 08:00 Anion Gap 4 (8-16) L 07/10/18 08:00 BUN 14 mg/dL (7-18) 07/10/18 08:00 Creatinine 0.7 mg/dL (0.55-1.02) 07/10/18 08:00 Creat Clearance w eGFR > 60 (>60) 07/10/18 08:00 Random Glucose 82 mg/dL (74-106) 07/10/18 08:00 Calcium 8.9 mg/dL (8.5-10.1) 07/10/18 08:00 Total Bilirubin 0.4 mg/dL (0.2-1.0) 07/10/18 08:00 AST 12 U/L (15-37) L 07/10/18 08:00 ALT 18 U/L (12-78) 07/10/18 08:00 Alkaline Phosphatase 80 U/L (45-117) 07/10/18 08:00 Total Protein 6.3 g/dl (6.4-8.2) L 07/10/18 08:00 Albumin 3.4 g/dl (3.4-5.0) 07/10/18 08:00 RPR Titer Reactive 1:1 (NONREACTIVE) H 07/10/18 08:00 T.pallidum Ab (MHA) Previously reactive (NONREACTIVE) 07/10/18 08:00 Labs noted - Medication Discharge Medications: Ambulatory Orders Albuterol Sulfate [Proair Hfa -] 2 inh PO Q6H PRN 03/06/15 Amlodipine Besylate [Norvasc -] 5 mg PO DAILY 12/06/17 Hydroxyzine HCl 50 mg PO HS 12/06/17 Risperidone [Risperdal -] 2 mg PO HS 12/06/17 - Diagnosis (1) Cocaine dependence Current Visit: Yes Status: Chronic Qualifiers: Substance use status: uncomplicated Qualified Code(s): F14.20 - Cocaine dependence, uncomplicated (2) Nicotine dependence Current Visit: Yes Status: Chronic Qualifiers: Nicotine product type: cigarettes Substance use status: uncomplicated Qualified Code(s): F17.210 - Nicotine dependence, cigarettes, uncomplicated (3) Opioid dependence with withdrawal Current Visit: Yes Status: Chronic (4) Paranoid schizophrenia Current Visit: No Status: Acute - AMA Did Patient Leave Against Medical Advice: Yes
--- NOTE | 2018-07-10 15:52 | PN ---
[facility]HS Progress Note Note: Patient left AMA before she could be seen
[2018-07-11] MEDS ORDERED: METHADONE HCL 5 MG TABLET (FOR DETOX USE ONLY) PO ONE (10:00)
[2018-07-12] MEDS ORDERED: METHADONE HCL 5 MG TABLET (FOR DETOX USE ONLY) PO ONE (10:00)
[2018-07-13] MEDS ORDERED: METHADONE HCL 10 MG TABLET (FOR DETOX USE ONLY) PO ONE (10:00)
[2018-07-14] MEDS ORDERED: METHADONE HCL 5 MG TABLET (FOR DETOX USE ONLY) PO ONE (06:00)
== END 2018-07-10 15:18 | disposition left against medical advice (07) | DRG 770 ==
LOC: YASAS 08:23 → Y6N 10:35
PROVIDERS: ADMIT Surgery; ATTEND Surgery
PROC: HZ2ZZZZ Detoxification Services for Substance Abuse Treatment (ICD-10-PCS; principal; 2018-07-09)
DX: F11.23 Opioid dependence with withdrawal (principal); F14.20 Cocaine dependence, uncomplicated; F17.210 Nicotine dependence, cigarettes, uncomplicated; F20.9 Schizophrenia, unspecified; R76.11 Nonspecific reaction to tuberculin skin test without active tuberculosis; H91.93 Unspecified hearing loss, bilateral; J45.998 Other asthma; Z87.42 Personal history of other diseases of the female genital tract; Z86.69 Personal history of other diseases of the nervous system and sense organs
CPT/HCPCS: 36415; 80053; 85027; 86593; 86780; 93005; 93010

== ENCOUNTER 2018-08-27 13:36 | Inpatient (IN) | payer OTHER ==
[2018-08-27 15:14] VITALS: BMI 28.5
--- NOTE | 2018-08-27 18:19 | HP ---
COWS - Scale Resting Pulse: 1= [place] 81-100 Sweatin= Chills/Flushing Restless Observation: 3= Extraneous Movement Pupil Size: 1= Pupils >than Normal Bone or Joint Aches: 2= Severe Diffuse Aches Runny Nose/ Eye Tearin= Runny Nose/Eyes GI Upset > 30mins: 3= Vomiting/Diarrhea Tremor Observation: 2= Slight Tremor Visible Yawning Observation: 1= 1-2x During Session Anxiety or Irritability: 2=Irritable/Anxious Goose Flesh Skin: 0=Smooth Skin COWS Score: 18 CIWA Score - CIWA Score Nausea/Vomitin Muscle Tremors: 3 Anxiety: 3 Agitation: 2 Paroxysmal Sweats: 1-Minimal Palms Moist Orientation: 0-Oriented Tacttile Disturbances: 1-Very Mild Itch/Numbness Auditory Disturbances: 1-Very Mild Visual Disturbances: 1-Very Mild Sensitivity Headache: 2-Mild CIWA-Ar Total Score: 17 Admission ROS S - HPI Chief Complaint: i am here for detox from heroin and cocaine Allergies/Adverse Reactions: Allergies Allergy/AdvReac Type Severity Reaction Status Date / Time tomato Allergy Severe Hives Verified 08/27/18 19:00 No Known Drug Allergies Allergy Verified 08/27/18 19:00 - Ebola screening Have you traveled outside of the country in the last 21 days: No (N) Have you had contact with anyone from an Ebola affected area: No Have you been sick,other than usual withdrawal symptoms: No Do you have a fever: No - Review of Systems Constitutional: Chills, Loss of Appetite, Malaise, Night Sweats, Changes in sleep, Weakness, Unintentional Wgt. Loss EENT: reports: Tearing, Nose Congestion Respiratory: reports: Cough, Other (asthma) Cardiac: reports: No Symptoms Reported GI: reports: Diarrhea, Nausea, Poor Appetite, Vomiting, Abdominal cramping : reports: No Symptoms Reported Musculoskeletal: reports: Back Pain, Joint Pain, Muscle Pain Integumentary: reports: Dryness Neuro: reports: Headache, Tremors Endocrine: reports: No Symptoms Reported Hematology: reports: No Symptoms Reported Psychiatric: reports: No Sypmtoms Reported, Judgement Intact, Mood/Affect Appropiate, Orientated x3 (bipolar disorder) Patient History - Patient Medical History Hx Anemia: No Hx Asthma: Yes (Pt is on MDI) Hx Chronic Obstructive Pulmonary Disease (COPD): No Hx Cancer: No Hx Cardiac Disorders: No Hx Congestive Heart Failure: No Hx Hypertension: No Hx Hypercholesterolemia: No Hx Pacemaker: No HX Cerebrovascular Accident: No Hx Seizures: Yes (last time a week ago) Hx Diabetes: No Hx Gastrointestinal Disorders: No Hx Liver Disease: No Hx Genitourinary Disorders: No Hx Sexually Transmitted Disorders: No Hx Renal Disease (ESRD): No Hx Thyroid Disease: No Hx Human Immunodeficiency Virus (HIV): No (last 06/14) Hx Hepatitis C: No Hx Depression: Yes Hx Suicide Attempt: Yes (in her 20s) Hx Bipolar Disorder: No Hx Schizophrenia: Yes (hospitalized in her 20s, sees psych [facility]) Other Medical History: no suicidal,no homicidal - Patient Surgical History Past Surgical History: No Hx Neurologic Surgery: No Hx Cataract Extraction: No Hx Cardiac Surgery: No Hx Lung Surgery: No Hx Breast Surgery: No Hx Breast Biopsy: No Hx Abdominal Surgery: No Hx Appendectomy: No Hx Cholecystectomy: No Hx Genitourinary Surgery: No Hx Section: Yes (21 yrs ago.) Hx Orthopedic Surgery: No Anesthesia Reaction: No - PPD History Previous Implant?: Yes Documented Results: Positive w/proof Date: 12/29/17 PPD to be Administered?: No - Reproductive History Patient is a Female of Child Bearing Age (11 -55 yrs old): Yes Patient : No - Smoking Cessation Smoking history: Current every day smoker Have you smoked in the past 12 months: Yes Aproximately how many cigarettes per day: 12 Hx Chewing Tobacco Use: No Initiated information on smoking cessation: Yes 'Breaking Loose' booklet given: 08/27/18 - Substance & Tx. History Hx Alcohol Use: No Hx Substance Use: Yes Substance Use Type: Cocaine, Heroin Hx Substance Use Treatment: Yes (07/09/18 to 07/10/18 [facility] ) - Substances Abused Heroin Route: Inhalation Frequency: Daily Amount used: 5 bags Age of first use: 34 Date of Last Use: 08/26/18 Cocaine Route: Inhalation Frequency: 1-3 times last 30 days Amount used: 20$ Age of first use: 34 Date of Last Use: 08/26/18 Family Disease History - Family Disease History Family Disease History: Other: Father (murdered), Mother (murdered), Brother ( seven), Sister (nine), Son (four), Daughter (three) Admission Physical Exam [facility] - Vital Signs Vital Signs: Vital Signs - 24 hr 08/27/18 15:12 Temperature 101.1 F H Pulse Rate 97 H Respiratory 18 Rate Blood Pressure 118/71 - Physical General Appearance: Yes: Moderate Distress, Tremorous, Irritable, Sweating, Anxious HEENTM: Yes: Normal ENT Inspection, KEN, Pharynx Normal Respiratory: Yes: Lungs Clear, Normal Breath Sounds, No Respiratory Distress Neck: Yes: Within Normal Limits, Supple, Trachea in good position Breast: Yes: Breast Exam Deferred Cardiology: Yes: Within Normal Limits, Regular Rhythm, Regular Rate, S1, S2 Abdominal: Yes: Normal Bowel Sounds, Non Tender, Flat, Soft Genitourinary: Yes: Within Normal Limits Musculoskeletal: Yes: Back pain, Joint Stiffness, Muscle Pain Extremities: Yes: Tremors Neurological: Yes: bank cashier II-XII NML intact, Alert, Motor Strength 5/5 Integumentary: Yes: Within Normal Limits, Dry Lymphatic: Yes: Within Normal Limits - Diagnostic (1) Opioid dependence with withdrawal Current Visit: No Status: Chronic (2) Asthma Current Visit: No Status: Chronic Qualifiers: Asthma severity: mild Asthma complication type: unspecified (3) Cocaine dependence Current Visit: No Status: Chronic Qualifiers: Substance use status: uncomplicated Qualified Code(s): F14.20 - Cocaine dependence, uncomplicated (4) Hard of hearing Current Visit: No Status: Chronic Qualifiers: Contralateral hearing status: unspecified (5) Nicotine dependence Current Visit: No Status: Chronic Qualifiers: Nicotine product type: cigarettes Substance use status: uncomplicated Qualified Code(s): F17.210 - Nicotine dependence, cigarettes, uncomplicated (6) PPD positive Current Visit: No Status: Chronic (7) Schizophrenia Current Visit: No Status: Chronic (8) Acute bronchitis Current Visit: Yes Status: Acute Cleared for Admission [facility] - Detox or Rehab [facility] Level of Care: Medically Managed Detox Regimen/Protocol: Methadone [facility] Breath Alcohol Content Breath Alcohol Content: 0 Urine Pregancy Test - Result Urine Test Results: Negative- NO Line Present Urine Drug Screen - Results Drug Screen Negative: No Urine Drug Screen Results: CAITLIN-Cocaine, OPI-Opiates, OXY-Oxycodone
[2018-08-27] MEDS ORDERED: MENTHOL/PHENOL 1 EACH UD MM PRN (18:36)
[2018-08-27] MEDS ORDERED: LOPERAMIDE HCL 2 MG CAPSULE PO PRN (18:36)
[2018-08-27] MEDS ORDERED: MAGNESIUM CITRATE 300 ML BOTTLE PO PRN (18:36)
[2018-08-27] MEDS ORDERED: MAGNESIUM HYDROX 2400MG/30ML ORAL SUSPENSION 30 ML CUP PO PRN (18:36)
[2018-08-27] MEDS ORDERED: IBUPROFEN 400 MG TABLET (FP) PO PRN (18:36)
[2018-08-27] MEDS ORDERED: hydrOXYzine PAMOATE 25 MG CAPSULE (FP) PO PRN (18:36)
[2018-08-27] MEDS ORDERED: MAG HYDROX/AL HYDROX/SIMETH 30 ML UNIT-DOSE CUP PO PRN (18:36)
[2018-08-27] MEDS ORDERED: P-EPHED 60MG/TRIPROLIDI 2.5MG TABLET PO PRN (18:36)
[2018-08-27] MEDS ORDERED: ALBUTEROL SO4 8 GM HFA INHALER IH PRN (18:40)
[2018-08-27] MEDS ORDERED: ALBUTEROL SO4 2.5/IPRATROPIUM 0.5 INH SOL 3 ML VIAL.NEB. NEB PRN (18:45)
[2018-08-27] MEDS ORDERED: METHADONE HCL 10 MG TABLET (FOR DETOX USE ONLY) PO ONE ×2 (19:15→23:00)
[2018-08-27] MEDS: diazePAM 5 MG TABLET PO PRN (20:54)
[2018-08-27] MEDS: guaiFENesin/D-METHORPHAN HB 10 ML UNIT-DOSE CUPS PO PRN (20:56)
[2018-08-27] MEDS ORDERED: MELATONIN 5 MG TABLETS PO PRN (22:00)
[2018-08-27] MEDS ORDERED: THIAMINE HCL 100 MG TABLET (FP) PO SCH (22:00)
[2018-08-27] MEDS: AMOXICILLIN 500 MG CAPSULE (FP) PO SCH (22:01)
[2018-08-28] MEDS: AMOXICILLIN 500 MG CAPSULE (FP) PO SCH ×2 (06:45→14:06)
[2018-08-28] MEDS: ACETAMINOPHEN 325 MG TABLET (FP) PO PRN ×2 (06:45→11:04)
[2018-08-28] MEDS ORDERED: NICOTINE 21 MG/24 HOURS TOPICAL PATCH TD SCH (10:00)
[2018-08-28] MEDS ORDERED: amLODIPine BESYLATE 5 MG TABLET (FP) PO SCH (10:00)
[2018-08-28] MEDS ORDERED: PRENATAL VITAMINS W/ FOLIC ACID TABLET (FP) PO SCH (10:00)
[2018-08-28] MEDS ORDERED: METHADONE HCL 10 MG TABLET (FOR DETOX USE ONLY) PO ONE (10:00)
[2018-08-28] MEDS: diazePAM 5 MG TABLET PO PRN (11:04)
[2018-08-28 11:06] VITALS: BP 126/68; PULSE 75; TEMP 98.8
[2018-08-28] MEDS: guaiFENesin/D-METHORPHAN HB 10 ML UNIT-DOSE CUPS PO PRN (11:11)
--- NOTE | 2018-08-28 12:56 | CONSULT ---
[facility] Psychiatric Consult - Data Date of interview: 08/28/18 Admission source: self-referred Identifying data: Patient is a 52 y/o female , unemployed domiciled, mother of 8 children SSI recipient Substance Abuse History: Admitted to detox due to polysubstance use, heroin, cocaine, and ETOH. She has had numerous past Detox admissions and treatment. Her most recent admision @ [facility] was 2 weeks ago and signed AMA without completing her in patient treatment. Refer to addiction counselor note for more detailed drug history Medical History: Medical history of ASthma Psychiatric History: Past psychiatric hospitalization @ [facility] several years ago, past suicide attempt 3 decades ago. She is diagnosed with ? Schizo affective disorder Bipolar type. C/o feels weak, tired and fatigued, she denies sepression, anxiety at this time. She reports vague auditory hallucination not distress by the thought. She is medicated with Risperdal and acknowledged non compliance with her medication treatment. Denies suicidal or homicidal ideation Physical/Sexual Abuse/Trauma History: Denied Mental Status Exam - Mental Status Exam Alert and Oriented to: Place, Person Cognitive Function: Fair Patient Appearance: Unkempt, Disheveled Mood: Nervous Affect: Appropriate Patient Behavior: Passive, Cooperative Speech Pattern: Delayed, Slurred Voice Loudness: Moderately Soft/Quiet Thought Process: Intact Thought Disorder: Not Present Hallucinations: Denies Suicidal Ideation: Denies Homicidal Ideation: Denies Insight/Judgement: Poor Sleep: Poorly Appetite: Fair Muscle strength/Tone: Normal Gait/Station: Other Additional Comments: Unable to assess gait disturbances patient was seen bedside Psychiatric Findings - Problem List ([place] 1, 2,3) (1) Paranoid schizophrenia Current Visit: No Status: Acute (2) Asthma Current Visit: No Status: Chronic Qualifiers: Asthma severity: mild Asthma complication type: unspecified (3) Bipolar disorder Current Visit: No Status: Chronic (4) Nicotine dependence Current Visit: No Status: Chronic Qualifiers: Nicotine product type: cigarettes Substance use status: uncomplicated Qualified Code(s): F17.210 - Nicotine dependence, cigarettes, uncomplicated - Initial Treatment Plan Initial Treatment Plan: Continue Detox treatment. Detox protocol. Risperdal 1 mg po bid. Monitor closely
--- NOTE | 2018-08-28 15:19 | PN ---
[facility] COWS - Scale Resting Pulse: 1= [place] 81-100 Sweatin= Chills/Flushing Restless Observation: 1= Difficult to Sit Still Pupil Size: 1= Pupils >than Normal Bone or Joint Aches: 2= Severe Diffuse Aches Runny Nose/ Eye Tearin= Nasal Congestion GI Upset > 30mins: 2= Nausea/Diarrhea Tremor Observation of Outstretched Hands: 2= Slight Tremor Visible Yawning Observation: 2= >3x During Session Anxiety or Irritability: 2=Irritable/Anxious Goose Flesh Skin: 0=Smooth Skin COWS Score: 15 BHS Progress Note (SOAP) Subjective: tremor body ache sweat joints pain Objective: 08/28/18 15:22 Vital Signs Temperature 98.8 F 08/28/18 10:00 Pulse Rate 75 08/28/18 10:00 Respiratory Rate 16 08/28/18 10:00 Blood Pressure 126/68 08/28/18 10:00 O2 Sat by Pulse Oximetry (%) blood and urine result not available Assessment: 08/28/18 15:23 withdrawal sx Plan: continue detox
--- NOTE | 2018-08-28 17:02 | PN ---
S Progress Note Note: patient did not want to complete treatment,misbehave,all attempts to convince patient to stay with no avail, left ama,risk of withdrawal and relapsed explained,advise to go to er if any emergency medical problem
--- NOTE | 2018-08-28 17:12 | DS ---
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,signed release ama, risk of withdrawal and relapsing explained,advise to go to er if emergency medical problem Pertinent Past History: hard of hearing nicotine dependence acute bronchitis schizophrenia - Physical Exam Results Vital Signs: Vital Signs Temperature 98.8 F 08/28/18 10:00 Pulse Rate 75 08/28/18 10:00 Respiratory Rate 16 08/28/18 10:00 Blood Pressure 126/68 08/28/18 10:00 O2 Sat by Pulse Oximetry (%) Pertinent Admission Physical Exam Findings: withdrawal signs and symptom - Medication Discharge Medications: Ambulatory Orders Albuterol Sulfate [Proair Hfa -] 2 inh PO Q6H PRN 03/06/15 Amlodipine Besylate [Norvasc -] 5 mg PO DAILY 12/06/17 Hydroxyzine HCl 50 mg PO HS 12/06/17 Risperidone [Risperdal -] 2 mg PO HS 12/06/17 - Diagnosis (1) Opioid dependence with withdrawal Current Visit: No Status: Chronic (2) Asthma Current Visit: No Status: Chronic Qualifiers: Asthma severity: mild Asthma complication type: unspecified (3) Cocaine dependence Current Visit: No Status: Chronic Qualifiers: Substance use status: uncomplicated Qualified Code(s): F14.20 - Cocaine dependence, uncomplicated (4) Hard of hearing Current Visit: No Status: Chronic Qualifiers: Contralateral hearing status: unspecified (5) Nicotine dependence Current Visit: No Status: Chronic Qualifiers: Nicotine product type: cigarettes Substance use status: uncomplicated Qualified Code(s): F17.210 - Nicotine dependence, cigarettes, uncomplicated (6) PPD positive Current Visit: No Status: Chronic (7) Schizophrenia Current Visit: No Status: Chronic (8) Acute bronchitis Current Visit: Yes Status: Acute - AMA Did Patient Leave Against Medical Advice: Yes
[2018-08-28] MEDS ORDERED: risperiDONE 1 MG TABLET (FP) PO SCH (22:00)
--- NOTE | 2018-08-29 06:12 | EKG ---
Test Reason : Blood Pressure : / mmHG Vent. Rate : 101 BPM Atrial Rate : 101 BPM P-R Int : 146 ms QRS Dur : 076 ms QT Int : 332 ms P-R-T Axes : 066 078 062 degrees QTc Int : 430 ms SINUS TACHYCARDIA BIATRIAL ENLARGEMENT ABNORMAL ECG WHEN COMPARED WITH ECG OF 09-JUL-2018 12:58, VENT. RATE HAS INCREASED BY 34 BPM QT HAS SHORTENED Confirmed by JANIE GODOY, DONNY ([id number]) on 08/29/2018 6:12:21 AM Referred By: Confirmed By:DONNY LIMA MD
[2018-08-29] MEDS ORDERED: METHADONE HCL 5 MG TABLET (FOR DETOX USE ONLY) PO ONE (10:00)
[2018-08-30] MEDS ORDERED: METHADONE HCL 5 MG TABLET (FOR DETOX USE ONLY) PO ONE (10:00)
[2018-08-31] MEDS ORDERED: METHADONE HCL 10 MG TABLET (FOR DETOX USE ONLY) PO ONE (10:00)
[2018-09-01] MEDS ORDERED: METHADONE HCL 5 MG TABLET (FOR DETOX USE ONLY) PO ONE (06:00)
== END 2018-08-28 16:58 | disposition left against medical advice (07) | DRG 770 ==
LOC: YASAS 13:36 → Y6N 18:59
PROC: HZ2ZZZZ Detoxification Services for Substance Abuse Treatment (ICD-10-PCS; principal; 2018-08-27)
DX: F11.23 Opioid dependence with withdrawal (principal); F14.20 Cocaine dependence, uncomplicated; F17.213 Nicotine dependence, cigarettes, with withdrawal; F20.0 Paranoid schizophrenia; F31.9 Bipolar disorder, unspecified; J45.909 Unspecified asthma, uncomplicated; G40.909 Epilepsy, unspecified, not intractable, without status epilepticus; H91.90 Unspecified hearing loss, unspecified ear; J20.9 Acute bronchitis, unspecified; R76.11 Nonspecific reaction to tuberculin skin test without active tuberculosis; Z91.5 Personal history of self-harm
CPT/HCPCS: 93005; 93010

== ENCOUNTER 2018-12-14 20:18 | Inpatient (IN) | payer OTHER ==
[2018-12-14 21:01] VITALS: BMI 24.7
[2018-12-14] MEDS ORDERED: MELATONIN 5 MG TABLETS PO PRN (22:00)
--- NOTE | 2018-12-14 22:50 | HP ---
CIWA Score Nausea/Vomitin-No Nausea/No Vomiting Muscle Tremors: None Anxiety: 3 Agitation: 3 Paroxysmal Sweats: 3 Orientation: 3-Disoriented Date>2 days Tacttile Disturbances: 0-None Auditory Disturbances: 0-None Visual Disturbances: 0-None Headache: 0-None Present CIWA-Ar Total Score: 12 - Admission Criteria OAS Guidelines: Admission for Medically Managed Detox: Requires at least one of the followin. CIWA greater than 12 2. Seizures within the past 24 hours 3. Delirium tremens within the past 24 hours 4. Hallucinations within the past 24 hours 5. Acute intervention needed for co occurring medical disorder 6. Acute intervention needed for co occurring psychiatric disorder 7. Severe withdrawal that cannot be handled at a lower level of care (continued vomiting, continued diarrhea, abnormal vital signs) requiring intravenous medication and/or fluids 8. Patient presents the following: CIWA greater than 12, Acute intervention needed for co-occurring med or psych disorder Admission Criteria Met: Admission criteria met Admission ROS [facility] - [facility] Chief Complaint: C/O WORSENING WITHDRAWAL SX'S. SEEKING DETOX FROM ALCOHOL Allergies/Adverse Reactions: Allergies Allergy/AdvReac Type Severity Reaction Status Date / Time tomato Allergy Severe Hives Verified 12/14/18 22:52 No Known Drug Allergies Allergy Verified 12/14/18 22:52 History of Present Illness: 53 Y.O. FEMALE WITH ALCOHOLISM HERE FOR DETOX. CLIENT IS KNOWN TO THIS PROGRAM. LAST ADMISSION A FEW MONTHS AGO. PRESENTS TODAY WITH C/O WITHDRAWAL SX'S. CIWA 12. SELF REFERRED. REPORTS LONGEST CLEAN TIME 4 MONTHS. sHE IS ALSO OPIOID DEPENDENT ON MMTP 40 MG DAILY LDM TODAY AT [facility] ALL PENDING VERIFICATION. DENIES ANY CLEAN TIME IN THE PAST YEAR. REPORTS MULTIPLE INPATIENT TXMENT BUT CONTINUES TO RELAPSE. DENIES SI/HI,REPORTS HX/O AVH TAKING RISPERDAL BUT HAS NOT HAD ANY IN A WHILE. PRESENTLY DENIES SX'S. DENIES HX/O SEIZURES, DRUG OVERDOSE. LIVING WITH DAUGHTER, SSI, DENIES LEGALS. PMHX- [place], HTN, ASTHMA, PSYCH- BIPOLAR, SCHIZOPHRENIA HX/O REPORTED POSITIVE PPD NOTED IN DX. CLIENT DENIES HX Exam Limitations: No Limitations ([place]) - Ebola screening Have you traveled outside of the country in the last 21 days: No Have you had contact with anyone from an Ebola affected area: No Have you been sick,other than usual withdrawal symptoms: No - Review of Systems Constitutional: Chills, Loss of Appetite, Malaise, Night Sweats, Changes in sleep EENT: reports: Dental Problems (DENTURES BOTH) Respiratory: reports: No Symptoms reported Cardiac: reports: No Symptoms Reported GI: reports: Diarrhea, Poor Appetite, Poor Fluid Intake : reports: Frequency Musculoskeletal: reports: Other (RIGHT FOOT PAIN) Integumentary: reports: No Symptoms Reported Neuro: reports: Other ("FALLING OUT") Endocrine: reports: No Symptoms Reported Hematology: reports: No Symptoms Reported Psychiatric: reports: Anxious Other Systems: Reviewed and Negative Patient History - Patient Medical History Hx Anemia: No Hx Asthma: Yes (Pt is on MDI) Hx Chronic Obstructive Pulmonary Disease (COPD): No Hx Cancer: No Hx Cardiac Disorders: No Hx Congestive Heart Failure: No Hx Hypertension: Yes Hx Hypercholesterolemia: No Hx Pacemaker: No HX Cerebrovascular Accident: No Hx Seizures: No Hx Diabetes: No Hx Gastrointestinal Disorders: No Hx Liver Disease: No Hx Genitourinary Disorders: No Hx Sexually Transmitted Disorders: No Hx Renal Disease (ESRD): No Hx Thyroid Disease: No Hx Human Immunodeficiency Virus (HIV): No (last 06/14) Hx Hepatitis C: No Hx Depression: Yes Hx Suicide Attempt: Yes (in her 20s) Hx Bipolar Disorder: No Hx Schizophrenia: Yes (hospitalized in her 20s, [facility]) - Patient Surgical History Past Surgical History: No Hx Neurologic Surgery: No Hx Cataract Extraction: No Hx Cardiac Surgery: No Hx Lung Surgery: No Hx Breast Surgery: No Hx Breast Biopsy: No Hx Abdominal Surgery: No Hx Appendectomy: No Hx Cholecystectomy: No Hx Genitourinary Surgery: No Hx Section: Yes (21 yrs ago.) Hx Orthopedic Surgery: No Hx Hysterectomy: No Anesthesia Reaction: No - PPD History Previous Implant?: Yes Documented Results: Negative w/proof Implanted On Prior R Admission?: Yes Date: 12/29/17 Results: NO RESULTS PPD to be Administered?: Yes - Reproductive History Patient is a Female of Child Bearing Age (11 -55 yrs old): Yes LMP comment: MENAPAUSAL Patient : No (NEG CG) - Smoking Cessation Smoking history: Current every day smoker Have you smoked in the past 12 months: Yes Aproximately how many cigarettes per day: 12 Cigars Per Day: 0 Hx Chewing Tobacco Use: No Initiated information on smoking cessation: Yes 'Breaking Loose' booklet given: 12/14/18 - Substance & Tx. History Hx Alcohol Use: Yes Hx Substance Use: Yes Substance Use Type: Alcohol, Cocaine, Heroin Hx Substance Use Treatment: Yes ([facility]) - Substances Abused VODKA/BEER Route: Oral Frequency: Daily Amount used: 1 PINT/ 3 CANS Age of first use: 19 Date of Last Use: 12/14/18 HEROIN Route: Inhalation Frequency: 3-6 times per week Amount used: 1 BAG Age of first use: 34 Date of Last Use: 12/14/18 COCAINE Route: Inhalation Frequency: 1-3 times last 30 days Amount used: DIME Age of first use: 19 Date of Last Use: 12/11/18 Family Disease History - Family Disease History Family Disease History: Other: Father (murdered), Mother (murdered), Brother ( seven), Sister (nine), Son (four), Daughter (three) Admission Physical Exam [facility] - Vital Signs Vital Signs: Vital Signs - 24 hr 12/14/18 21:00 Temperature 98.9 F Pulse Rate 89 Respiratory 18 Rate Blood Pressure 134/70 - Physical General Appearance: Yes: Appropriately Dressed, Tremorous (FELT), Anxious HEENTM: Yes: EOMI, Normocephalic, Normal Voice, KEN, Pharynx Normal, Other ( DENTURES BOTH) Respiratory: Yes: Chest Non-Tender, Lungs Clear, Normal Breath Sounds, No Respiratory Distress, No Accessory Muscle Use Neck: Yes: No masses,lesions,Nodules, Supple, Trachea in good position Breast: Yes: Breast Exam Deferred Cardiology: Yes: Regular Rhythm, Regular Rate, S1, S2 Abdominal: Yes: Normal Bowel Sounds, Flat, Soft, Tenderness (LUQ) Genitourinary: Yes: Frequency (REPORTED) Back: Yes: Normal Inspection Musculoskeletal: Yes: full range of Motion, Gait Steady Extremities: Yes: Normal Range of Motion, Non-Tender, Tremors, Other Neurological: Yes: Fully Oriented, Alert, Motor Strength 5/5, Depressed Affect ( PERIODS OF CRYING) Integumentary: Yes: Normal Color, Dry, Warm, Other (HARD CALLUSES OB SOLE OF BOTH FEEL) Lymphatic: Yes: Within Normal Limits - Diagnostic (1) Paranoid schizophrenia Current Visit: Yes Status: Chronic (2) Alcohol dependence with uncomplicated withdrawal Current Visit: Yes Status: Acute (3) Asthma Current Visit: Yes Status: Chronic Qualifiers: Asthma severity: mild Asthma complication type: unspecified (4) Bipolar disorder Current Visit: Yes Status: Chronic (5) Cocaine dependence Current Visit: Yes Status: Chronic Qualifiers: Substance use status: uncomplicated Qualified Code(s): F14.20 - Cocaine dependence, uncomplicated (6) Hard of hearing Current Visit: Yes Status: Chronic Qualifiers: Contralateral hearing status: unspecified (7) Nicotine dependence Current Visit: Yes Status: Chronic Qualifiers: Nicotine product type: cigarettes Substance use status: uncomplicated Qualified Code(s): F17.210 - Nicotine dependence, cigarettes, uncomplicated Cleared for Admission BHS - Detox or Rehab [facility] Level of Care: Medically Managed Detox Regimen/Protocol: Librium Claeared for Rehab Admission: No BHS Breath Alcohol Content Breath Alcohol Content: 0 Urine Pregancy Test - Result Urine Test Results: Negative- NO Line Present Urine Drug Screen - Results Drug Screen Negative: No Urine Drug Screen Results: CAITLIN-Cocaine, OPI-Opiates, MTD-Methadone, FEN-Fentanyl
[2018-12-14] MEDS ORDERED: ALBUTEROL SO4 8 GM HFA INHALER IH PRN (23:03)
[2018-12-14] MEDS ORDERED: MAGNESIUM CITRATE 300 ML BOTTLE PO PRN (23:04)
[2018-12-14] MEDS ORDERED: MAGNESIUM HYDROX 2400MG/30ML ORAL SUSPENSION 30 ML CUP PO PRN (23:04)
[2018-12-14] MEDS ORDERED: guaiFENesin/D-METHORPHAN HB 10 ML UNIT-DOSE CUPS PO PRN (23:04)
[2018-12-14] MEDS ORDERED: P-EPHED 60MG/TRIPROLIDI 2.5MG TABLET PO PRN (23:04)
[2018-12-14] MEDS ORDERED: ACETAMINOPHEN 325 MG TABLET (FP) PO PRN (23:04)
[2018-12-14] MEDS ORDERED: MENTHOL/PHENOL 1 EACH UD MM PRN (23:04)
[2018-12-14] MEDS ORDERED: chlordiazePOXIDE HCL 25 MG CAPSULE PO PRN (23:04)
[2018-12-14] MEDS ORDERED: MAG HYDROX/AL HYDROX/SIMETH 30 ML UNIT-DOSE CUP PO PRN (23:04)
[2018-12-14] MEDS ORDERED: IBUPROFEN 400 MG TABLET (FP) PO PRN (23:04)
[2018-12-14] MEDS ORDERED: NICOTINE POLACRILEX 2 MG GUM BC PRN (23:04)
[2018-12-14] MEDS ORDERED: LOPERAMIDE HCL 2 MG CAPSULE PO PRN (23:04)
[2018-12-14] MEDS ORDERED: hydrOXYzine PAMOATE 50 MG CAPSULE (FP) PO PRN (23:04)
[2018-12-15] MEDS: chlordiazePOXIDE HCL 25 MG CAPSULE PO SCH ×5 (00:22→22:28)
--- NOTE | 2018-12-15 09:32 | PN ---
S CIWA - CIWA Score Nausea/Vomitin-Mild Nausea/No Vomiting Muscle Tremors: 3 Anxiety: 1-Mildly Anxious Agitation: 2 Paroxysmal Sweats: 1-Minimal Palms Moist Orientation: 1-Uncertain about Date Tacttile Disturbances: 0-None Auditory Disturbances: 0-None Visual Disturbances: 0-None Headache: 2-Mild CIWA-Ar Total Score: 11 BHS Progress Note (SOAP) Subjective: hard of hearing able to communicate with the provider tremor sweating able to tolerated food and fluid Objective: 12/15/18 09:32 Vital Signs Temperature 96.2 F L 12/15/18 09:19 Pulse Rate 62 12/15/18 09:19 Respiratory Rate 18 12/15/18 09:19 Blood Pressure 93/58 L 12/15/18 09:19 O2 Sat by Pulse Oximetry (%) 12/15/18 09:33 lab pending encourage oral fluid Assessment: 12/15/18 09:33 alcohol withdrawal sx Plan: continue detox
[2018-12-15 10:12] LABS: HEMATOCRIT 37.6 % (32.4-45.2); HEMOGLOBIN 12.8 GM/dL (10.7-15.3); MEAN CELL VOLUME 85.3 fl (80-96); MEAN PLT VOLUME 9.6 fl (7.5-11.1); PLATELET COUNT 200 K/MM3 (134-434); RBC 4.41 M/mm3 (3.60-5.2); RDW 14.8 % (11.6-15.6); WHITE BLOOD COUNT 6.2 K/mm3 (4.0-10.0)
[2018-12-15 10:36] LABS: ALBUMIN 3.5 g/dl (3.4-5.0); ALK PHOS 89 U/L (45-117); ANION GAP 6 MMOL/L (8-16); BILIRUBIN,TOTAL 0.4 mg/dL (0.2-1); BLOOD UREA NITROGEN 16 mg/dL (7-18); CALCIUM 8.6 mg/dL (8.5-10.1); CHLORIDE 109 mmol/L (98-107); CO2 29 mmol/L (21-32); CREATININE 0.9 mg/dL (0.55-1.3); GLUCOSE,RANDOM 96 mg/dL (74-106); POTASSIUM 3.3 mmol/L (3.5-5.1); SGOT/AST 13 U/L (15-37); SGPT/ALT 20 U/L (13-61); SODIUM 144 mmol/L (136-145); TOT PROT 6.2 g/dl (6.4-8.2)
[2018-12-15] MEDS: NICOTINE 14 MG/24 HOURS TOPICAL PATCH TD SCH (11:47)
[2018-12-15] MEDS: PRENATAL VITAMINS W/ FOLIC ACID TABLET (FP) PO SCH (11:47)
[2018-12-15] MEDS ORDERED: METHADONE HCL 40 MG DISPERSABLE TABLET PO ONE (14:09)
[2018-12-15] MEDS: THIAMINE HCL 100 MG TABLET (FP) PO SCH (21:33)
[2018-12-16] MEDS: chlordiazePOXIDE HCL 25 MG CAPSULE PO SCH ×3 (06:17→17:13)
[2018-12-16] MEDS: METHADONE HCL 40 MG DISPERSABLE TABLET PO SCH (06:17)
--- NOTE | 2018-12-16 10:05 | CONSULT ---
[facility] Psychiatric Consult - Data Date of interview: 12/16/18 Admission source: [facility] Identifying data: Patient is a 53 year old single female, mother of eight, unemployed, and is currently homeless. This is one of multiple admissions for patient. Patient admitted to for opiate and cocaine dependence. Substance Abuse History: Smoking Cessation. Smoking history: Current every day smoker. Have you smoked in the past 12 months: Yes. Aproximately how many cigarettes per day: 12. Cigars Per Day: 0. Hx Chewing Tobacco Use: No. Initiated information on smoking cessation: Yes. 'Breaking Loose' booklet given : 12/14/18. - Substance & Tx. History. Hx Alcohol Use: Yes. Hx Substance Use : Yes. Substance Use Type: Alcohol, Cocaine, Heroin. Hx Substance Use Treatment: Yes ([facility]). - Substances Abused. VODKA/BEER. Route: Oral. Frequency: Daily. Amount used: 1 PINT/ 3 CANS. Age of first use: 19. Date of Last Use: 12/14/18. HEROIN. Route: Inhalation. Frequency: 3-6 times per week. Amount used: 1 BAG. Age of first use: 34. Date of Last Use: 12/14/18. COCAINE. Route: Inhalation. Frequency: 1-3 times last 30 days. Amount used : DIME. Age of first use: 19. Date of Last Use: 12/11/18 Medical History: Chronic hard of hearing, asthma Psychiatric History: Patient reports h/o four psychiatric hospitalizations all at [facility] in [place], [place]. Diagnosis of schizophrenia. Patient with a chronic history of nonadherence to medications and outpatient treatment. Ms. Ybarra is seen by pattern chart writer in the methadone clinic. She was given one month supply of Risperdal 1mg BID + Cogentin 1mg HS on 10/12/18. Patient has yet to return to see pattern chart writer again. States she last took psychotropic medications last month. Ms. Ybarra is on 40mg of methadone maintenance daily. Patient denies h /o psychiatric hospitalizations. Physical/Sexual Abuse/Trauma History: denies. Mental Status Exam - Mental Status Exam Alert and Oriented to: Time, Place Cognitive Function: Good Patient Appearance: Well Groomed Mood: Withdrawn Affect: Mood Congruent Patient Behavior: Fatigued, Cooperative Speech Pattern: Slurred Voice Loudness: Moderately Soft/Quiet (Patient is hard of hearing) Thought Process: Goal Oriented Thought Disorder: Not Present Hallucinations: Denies Suicidal Ideation: Denies Homicidal Ideation: Denies Insight/Judgement: Poor Sleep: Fair Appetite: Fair Muscle strength/Tone: Normal Gait/Station: Normal Psychiatric Findings - Problem List ([place] 1, 2,3) (1) Methadone maintenance therapy patient Current Visit: Yes Status: Chronic (2) Alcohol dependence with uncomplicated withdrawal Current Visit: Yes Status: Acute (3) Schizophrenia Current Visit: Yes Status: Chronic (4) Cocaine dependence Current Visit: Yes Status: Chronic Qualifiers: Substance use status: uncomplicated Qualified Code(s): F14.20 - Cocaine dependence, uncomplicated - Initial Treatment Plan Initial Treatment Plan: Psychoeducation provided. Detoxification in progress. Will order risperdal 1mg qhs + Cogentin 0.5mg qhs. Benefits and side effects discussed. Verbal consent given.
[2018-12-16] MEDS: PRENATAL VITAMINS W/ FOLIC ACID TABLET (FP) PO SCH (10:24)
[2018-12-16] MEDS: NICOTINE 14 MG/24 HOURS TOPICAL PATCH TD SCH (10:24)
[2018-12-16 13:24] LABS: RPR REACTIVE 1:1 (NONREACTIVE)
[2018-12-16 13:25] LABS: TREPONEMA ANTIBODY PREVIOUSLY REACTIVE (NONREACTIVE)
--- NOTE | 2018-12-16 16:52 | PN ---
S CIWA - CIWA Score Nausea/Vomitin-No Nausea/No Vomiting Muscle Tremors: None Anxiety: 3 Agitation: 0-Normal Activity Paroxysmal Sweats: No Perspiration Orientation: 0-Oriented Tacttile Disturbances: 2-Mild Itch/Numbness/Burn Auditory Disturbances: 0-None Visual Disturbances: 3-Moderate Sensitivity Headache: 3-Moderate CIWA-Ar Total Score: 11 BHS Progress Note (SOAP) Subjective: Body Aches, H/A, Fatigue, Interrupted Sleep. Objective: PATIENT A & O X 3, OBSERVED AMBULATING ON UNIT. IN NO ACUTE DISTRESS. 12/16/18 16:46 Vital Signs Temperature 99.1 F 12/16/18 13:27 Pulse Rate 52 L 12/16/18 13:27 Respiratory Rate 18 12/16/18 13:27 Blood Pressure 108/64 12/16/18 13:27 O2 Sat by Pulse Oximetry (%) Laboratory Tests 12/15/18 12/15/18 12/15/18 07:00 07:00 07:00 WBC 6.2 RBC 4.41 Hgb 12.8 Hct 37.6 MCV 85.3 MCH 29.0 MCHC 34.0 RDW 14.8 Plt Count 200 MPV 9.6 Sodium 144 Potassium 3.3 L Chloride 109 H Carbon Dioxide 29 Anion Gap 6 L BUN 16 Creatinine 0.9 Creat Clearance w eGFR > 60 Random Glucose 96 Calcium 8.6 Total Bilirubin 0.4 AST 13 L ALT 20 Alkaline Phosphatase 89 Total Protein 6.2 L Albumin 3.5 RPR Titer Reactive 1:1 H T.pallidum Ab ([facility]) Previously reactive LABS NOTED. REACTIVE RPR (1:1) NOTED. PATIENT REPORTS THAT SHE COMPLETED A FULL COURSE OF ANTIBIOTIC TREATMENT FOR SYPHILIS IN 2018. PATIENT ADVISED TO FOLLOW-UP WITH CORRECTIONAL SECURITY OFFICER AT [facility] ( [place], [place]) (PATIENT UNABLE TO RECALL MEDICAL PROVIDER'S NAME AT THIS TIME) AFTER DISCHARGE FROM DETOX FOR FURTHER EVALUATION. PATIENT VERBALIZED UNDERSTANDING ON RECOMMENDATION. 12/16/18 16:49 Assessment: 12/16/18 16:47 WITHDRAWAL SYMPTOMS. HYPOKALEMIA. 12/16/18 16:54 Plan: CONTINUE DETOX. K-DUR, 20 MEQ PO BID.
[2018-12-16] MEDS: POTASSIUM CHLORIDE TABS 20 MEQ TABLET.ER (FP) PO SCH (17:13)
[2018-12-16] MEDS: THIAMINE HCL 100 MG TABLET (FP) PO SCH (22:12)
[2018-12-16] MEDS: BENZTROPINE MESYLATE 1 MG TABLET (FP) PO SCH (22:12)
[2018-12-16] MEDS: chlordiazePOXIDE 5 MG CAPSULE PO SCH (22:12)
[2018-12-16] MEDS: risperiDONE 1 MG TABLET (FP) PO SCH (22:12)
[2018-12-17] MEDS: METHADONE HCL 40 MG DISPERSABLE TABLET PO SCH (06:07)
[2018-12-17] MEDS: chlordiazePOXIDE 5 MG CAPSULE PO SCH ×3 (06:08→17:45)
[2018-12-17] MEDS: PRENATAL VITAMINS W/ FOLIC ACID TABLET (FP) PO SCH (10:30)
[2018-12-17] MEDS: POTASSIUM CHLORIDE TABS 20 MEQ TABLET.ER (FP) PO SCH ×2 (10:30→17:45)
[2018-12-17] MEDS: NICOTINE 14 MG/24 HOURS TOPICAL PATCH TD SCH (10:31)
[2018-12-17 12:03] LABS: URINE APPEARANCE SLCLOUDY; URINE BILIRUBIN NEGATIVE (<2.0 mg/dL); URINE COLOR STRAW; URINE GLUCOSE (UA) NEGATIVE (NEGATIVE); URINE KETONE NEGATIVE (NEGATIVE); URINE LEUK ESTERASE 2+ (NEGATIVE); URINE NITRITE NEGATIVE (NEGATIVE); URINE PROTEIN NEGATIVE (NEGATIVE); URINE UROBILINOGEN NEGATIVE mg/dL (0.2-1.0)
[2018-12-17 12:28] LABS: EPI CELLS RARE /HPF (FEW); URINE MUCUS RARE
[2018-12-17] MEDS: AMMONIUM LACTATE 12% LOTION 225 GM BOTTLE TP SCH ×2 (14:36→22:09)
--- NOTE | 2018-12-17 16:08 | PN ---
BHS Progress Note (SOAP) Subjective: Sweating, Body Aches. Objective: PATIENT A & O X 3, OBSERVED AMBULATING ON UNIT. IN NO ACUTE DISTRESS. 12/17/18 16:06 Vital Signs Temperature 98.2 F 12/17/18 14:13 Pulse Rate 64 12/17/18 14:13 Respiratory Rate 16 12/17/18 14:13 Blood Pressure 107/67 12/17/18 14:13 O2 Sat by Pulse Oximetry (%) Laboratory Tests 12/15/18 12/15/18 12/15/18 07:00 07:00 07:00 WBC 6.2 RBC 4.41 Hgb 12.8 Hct 37.6 MCV 85.3 MCH 29.0 MCHC 34.0 RDW 14.8 Plt Count 200 MPV 9.6 Sodium 144 Potassium 3.3 L Chloride 109 H Carbon Dioxide 29 Anion Gap 6 L BUN 16 Creatinine 0.9 Creat Clearance w eGFR > 60 Random Glucose 96 Calcium 8.6 Total Bilirubin 0.4 AST 13 L ALT 20 Alkaline Phosphatase 89 Total Protein 6.2 L Albumin 3.5 Urine Color Urine Appearance Urine pH Ur Specific [place] Urine Protein Urine Glucose (UA) Urine Ketones Urine Blood Urine Nitrite Urine Bilirubin Urine Urobilinogen Ur Leukocyte Esterase Urine WBC (Auto) Urine RBC (Auto) Ur Epithelial Cells Urine Mucus RPR Titer Reactive 1:1 H T.pallidum Ab ([facility]) Previously reactive 12/17/18 10:00 WBC RBC Hgb Hct MCV MCH MCHC RDW Plt Count MPV Sodium Potassium Chloride Carbon Dioxide Anion Gap BUN Creatinine Creat Clearance w eGFR Random Glucose Calcium Total Bilirubin AST ALT Alkaline Phosphatase Total Protein Albumin Urine Color Straw Urine Appearance Slcloudy Urine pH 5.0 Ur Specific [place] 1.005 L Urine Protein Negative Urine Glucose (UA) Negative Urine Ketones Negative Urine Blood 1+ H Urine Nitrite Negative Urine Bilirubin Negative Urine Urobilinogen Negative Ur Leukocyte Esterase 2+ H Urine WBC (Auto) 22 Urine RBC (Auto) <1 Ur Epithelial Cells Rare Urine Mucus Rare RPR Titer T.pallidum Ab ([facility]) LABS NOTED. RESULTS OF UA NOTED. 12/17/18 16:12 Assessment: 12/17/18 16:06 WITHDRAWAL SYMPTOMS. POSSIBLE UTI. 12/17/18 16:12 Plan: CONTINUE DETOX. INCREASE DAILY PO FLUID INTAKE. START PROPHYLACTIC BACTRIM DS FOR POSSIBLE UTI.
[2018-12-17] MEDS: THIAMINE HCL 100 MG TABLET (FP) PO SCH (22:08)
[2018-12-17] MEDS: chlordiazePOXIDE HCL 10 MG CAPSULE PO SCH (22:08)
[2018-12-17] MEDS: SULFAMETHOXAZOLE/TRIMETHOPRIM 800MG/160MG D.S. TABLET PO SCH (22:09)
[2018-12-17] MEDS: risperiDONE 1 MG TABLET (FP) PO SCH (22:09)
[2018-12-17] MEDS: BENZTROPINE MESYLATE 1 MG TABLET (FP) PO SCH (22:09)
[2018-12-18] MEDS: METHADONE HCL 40 MG DISPERSABLE TABLET PO SCH (06:30)
[2018-12-18] MEDS: chlordiazePOXIDE HCL 10 MG CAPSULE PO SCH ×2 (06:30→11:15)
[2018-12-18 10:47] VITALS: BP 115/73; PULSE 68; TEMP 97
[2018-12-18] MEDS: PRENATAL VITAMINS W/ FOLIC ACID TABLET (FP) PO SCH (11:15)
[2018-12-18] MEDS: SULFAMETHOXAZOLE/TRIMETHOPRIM 800MG/160MG D.S. TABLET PO SCH (11:15)
[2018-12-18] MEDS: NICOTINE 14 MG/24 HOURS TOPICAL PATCH TD SCH (11:15)
[2018-12-18] MEDS: POTASSIUM CHLORIDE TABS 20 MEQ TABLET.ER (FP) PO SCH (11:15)
[2018-12-18] MEDS: AMMONIUM LACTATE 12% LOTION 225 GM BOTTLE TP SCH (11:17)
--- NOTE | 2018-12-18 18:15 | DS ---
[facility] Detox Discharge Summary Admission Date: 12/14/18 Discharge Date: 12/18/18 - History Present History: Alcohol Dependence, Cocaine Dependence, Opioid Dependence, MMTP Additional Comments: Patient demanded to leave today. Patient has been very drowsy and walking around the unit and frequently stood up at nursing station sleeping to the point where she could fall. Fermentologist and nursing staff spoke with patient regarding importance of staying until she is more alert but she insisted on leaving. Patient is also on MMTP and was informed that tomorrow is a holiday and her methadone program might be closed but she didn't care. Patient could have been discharge today but entry writer will not discharge her because she's very drowsy and at risk for injuring herself. Patient was a little more alert and demanded to leave AMA. Patient instructed to call 911 if feeling sick or any withdrawal symptoms and to see her PCP within 3 days. Pertinent Past History: Asthma HTN - Physical Exam Results Vital Signs: Vital Signs Temperature 97.0 F L 12/18/18 10:00 Pulse Rate 68 12/18/18 10:00 Respiratory Rate 18 12/18/18 10:00 Blood Pressure 115/73 12/18/18 10:00 O2 Sat by Pulse Oximetry (%) Pertinent Admission Physical Exam Findings: Withdrawal symptoms Laboratory Tests 12/15/18 12/15/18 12/15/18 07:00 07:00 07:00 WBC 6.2 RBC 4.41 Hgb 12.8 Hct 37.6 MCV 85.3 MCH 29.0 MCHC 34.0 RDW 14.8 Plt Count 200 MPV 9.6 Sodium 144 Potassium 3.3 L Chloride 109 H Carbon Dioxide 29 Anion Gap 6 L BUN 16 Creatinine 0.9 Creat Clearance w eGFR > 60 Random Glucose 96 Calcium 8.6 Total Bilirubin 0.4 AST 13 L ALT 20 Alkaline Phosphatase 89 Total Protein 6.2 L Albumin 3.5 Urine Color Urine Appearance Urine pH Ur Specific [place] Urine Protein Urine Glucose (UA) Urine Ketones Urine Blood Urine Nitrite Urine Bilirubin Urine Urobilinogen Ur Leukocyte Esterase Urine WBC (Auto) Urine RBC (Auto) Ur Epithelial Cells Urine Mucus RPR Titer Reactive 1:1 H T.pallidum Ab ([facility]) Previously reactive 12/17/18 10:00 WBC RBC Hgb Hct MCV MCH MCHC RDW Plt Count MPV Sodium Potassium Chloride Carbon Dioxide Anion Gap BUN Creatinine Creat Clearance w eGFR Random Glucose Calcium Total Bilirubin AST ALT Alkaline Phosphatase Total Protein Albumin Urine Color Straw Urine Appearance Slcloudy Urine pH 5.0 Ur Specific [place] 1.005 L Urine Protein Negative Urine Glucose (UA) Negative Urine Ketones Negative Urine Blood 1+ H Urine Nitrite Negative Urine Bilirubin Negative Urine Urobilinogen Negative Ur Leukocyte Esterase 2+ H Urine WBC (Auto) 22 Urine RBC (Auto) <1 Ur Epithelial Cells Rare Urine Mucus Rare RPR Titer T.pallidum Ab ([facility]) Labs reviewed: [place] 3.3 (replenished) - Medication Discharge Medications: Ambulatory Orders Albuterol Sulfate [Proair Hfa -] 2 inh PO Q6H PRN 03/06/15 Amlodipine Besylate [Norvasc -] 5 mg PO DAILY 12/06/17 Hydroxyzine HCl 50 mg PO HS 12/06/17 Albuterol Sulfate Inhaler - [Ventolin HFA Inhaler -] 2 puff IH Q4H PRN #1 inhaler 08/28/18 Amlodipine Besylate [Norvasc -] 5 mg PO DAILY tablet 08/28/18 Amoxicillin - [Amoxicillin 500mg Capsule -] 500 mg PO TID #30 capsule 08/28/18 Benztropine Mesylate [Cogentin -] 1 mg PO HS #30 tablet 10/12/18 Risperidone [Risperdal] 1 mg PO BID #60 tablet 10/12/18 Sulfamethoxazole/Trimethoprim [Bactrim Ds -] 1 tab PO BID 7 Days #14 tablet - Diagnosis (1) HTN (hypertension), benign Status: Chronic (2) Alcohol dependence with uncomplicated withdrawal Status: Acute (3) Hypokalemia Status: Acute (4) Asthma Status: Chronic Qualifiers: Asthma severity: mild Asthma complication type: unspecified (5) Cocaine dependence Status: Chronic Qualifiers: Substance use status: uncomplicated Qualified Code(s): F14.20 - Cocaine dependence, uncomplicated (6) Methadone maintenance therapy patient Status: Chronic (7) Nicotine dependence Status: Chronic Qualifiers: Nicotine product type: cigarettes Substance use status: uncomplicated Qualified Code(s): F17.210 - Nicotine dependence, cigarettes, uncomplicated - AMA Did Patient Leave Against Medical Advice: Yes (Instructed to call 911 if feeling sick or withdrawal symptoms)
== END 2018-12-18 14:45 | disposition left against medical advice (07) | DRG 770 ==
LOC: YASAS 20:18 → Y3N 23:22
PROVIDERS: ADMIT Neuromusculoskeletal Medicine & OMM; ATTEND Neuromusculoskeletal Medicine & OMM
PROC: HZ2ZZZZ Detoxification Services for Substance Abuse Treatment (ICD-10-PCS; principal; 2018-12-14)
DX: F10.230 Alcohol dependence with withdrawal, uncomplicated (principal); F11.20 Opioid dependence, uncomplicated; F14.20 Cocaine dependence, uncomplicated; F17.210 Nicotine dependence, cigarettes, uncomplicated; F20.0 Paranoid schizophrenia; F31.9 Bipolar disorder, unspecified; I10 Essential (primary) hypertension; E87.6 Hypokalemia; J45.909 Unspecified asthma, uncomplicated; N39.0 Urinary tract infection, site not specified; H91.90 Unspecified hearing loss, unspecified ear; Z91.5 Personal history of self-harm
CPT/HCPCS: 36415; 80053; 81003; 81015; 85027; 86593; 86780; J2794

== ENCOUNTER 2020-01-16 18:53 | Inpatient (IN) | payer OTHER ==
--- NOTE | 2020-01-16 21:07 | BHS.RME ---
CIWA Nausea/Vomitin Muscle Tremors: 3 Anxiety: 3 Agitation: 3 Paroxysmal Sweats: 2 Orientation: 2-Disoriented Date<2 days Tacttile Disturbances: 0-None Auditory Disturbances: 0-None Visual Disturbances: 0-None Headache: 0-None Present CIWA-Ar Total Score: 15
[2020-01-16 22:12] VITALS: BMI 29.9
--- NOTE | 2020-01-16 22:24 | HP ---
CIWA Score Nausea/Vomitin Muscle Tremors: 3 Anxiety: 3 Agitation: 3 Paroxysmal Sweats: 2 Orientation: 2-Disoriented Date<2 days Tacttile Disturbances: 0-None Auditory Disturbances: 0-None Visual Disturbances: 0-None Headache: 0-None Present CIWA-Ar Total Score: 15 - Admission Criteria OASAS Guidelines: Admission for Medically Managed Detox: Requires at least one of the followin. CIWA greater than 12 2. Seizures within the past 24 hours 3. Delirium tremens within the past 24 hours 4. Hallucinations within the past 24 hours 5. Acute intervention needed for co occurring medical disorder 6. Acute intervention needed for co occurring psychiatric disorder 7. Severe withdrawal that cannot be handled at a lower level of care (continued vomiting, continued diarrhea, abnormal vital signs) requiring intravenous medication and/or fluids 8. Admitting History and Physical - Smoking History Smoking history: Current every day smoker Have you smoked in the past 12 months: Yes Aproximately how many cigarettes per day: 12 - Alcohol/Substance Use Hx Alcohol Use: Yes Admission ROS [facility] - [facility] Chief Complaint: Alcohol withdrawal symptoms, on MMTP Allergies/Adverse Reactions: Allergies Allergy/AdvReac Type Severity Reaction Status Date / Time tomato Allergy Severe Hives Verified 01/16/20 22:02 No Known Drug Allergies Allergy Verified 01/16/20 22:02 History of Present Illness: 54 years old female with 30 years of alcohol dependence is seeking admission to detox. Patient reports that her last detox was at [facility] Her last admission to [facility] was for the period 12/14/2018- 2018. She reports medical history of asthma, hard of hearing, hypertension, bronchitis and psych. history of schizophrenia and depression. She denies suicidal ideation at this time. Patient is on Methadone 40mg tablet oral daily with [facility]. Dose is yet to be verified by the nurse. Exam Limitations: No Limitations - Ebola screening Have you traveled outside of the country in the last 21 days: No Have you had contact with anyone from an Ebola affected area: No Do you have a fever: No - Review of Systems Constitutional: Chills, Malaise, Night Sweats, Changes in sleep EENT: reports: Nose Congestion Cardiac: reports: No Symptoms Reported GI: reports: Diarrhea (x 2), Nausea, Poor Appetite, Poor Fluid Intake, Abdominal cramping : reports: No Symptoms Reported Musculoskeletal: reports: No Symptoms Reported Integumentary: reports: Dryness, Flushing Neuro: reports: Tremors Endocrine: reports: No Symptoms Reported Hematology: reports: No Symptoms Reported Psychiatric: reports: Mood/Affect Appropiate, Anxious, Depressed Other Systems: Reviewed and Negative Patient History - Patient Medical History Hx Anemia: No Hx Asthma: Yes (Pt is on MDI) Hx Chronic Obstructive Pulmonary Disease (COPD): No Hx Cancer: No Hx Cardiac Disorders: No Hx Congestive Heart Failure: No Hx Hypertension: Yes Hx Hypercholesterolemia: No Hx Pacemaker: No HX Cerebrovascular Accident: No Hx Seizures: No Hx Diabetes: No Hx Gastrointestinal Disorders: No Hx Liver Disease: No Hx Genitourinary Disorders: No Hx Sexually Transmitted Disorders: No Hx Renal Disease (ESRD): No Hx Thyroid Disease: No Hx Human Immunodeficiency Virus (HIV): No (last 06/14) Hx Hepatitis C: No Hx Depression: Yes Hx Suicide Attempt: Yes (in her 20s. den ies suicidal ideation at this time) Hx Bipolar Disorder: No Hx Schizophrenia: Yes (hospitalized in her 20s, sees psych. at [facility]) - Patient Surgical History Past Surgical History: Yes Hx Neurologic Surgery: No Hx Cataract Extraction: No Hx Cardiac Surgery: No Hx Lung Surgery: No Hx Breast Surgery: No Hx Breast Biopsy: No Hx Abdominal Surgery: No Hx Appendectomy: No Hx Cholecystectomy: No Hx Genitourinary Surgery: No Hx Section: Yes (21 yrs ago.) Hx Orthopedic Surgery: No Hx Hysterectomy: No Anesthesia Reaction: No - PPD History Previous Implant?: Yes Documented Results: Negative w/proof Implanted On Prior [facility] Admission?: Yes Date: 12/16/18 Results: NO RESULTS PPD to be Administered?: Yes - Reproductive History LMP comment: 23 years ago - Smoking Cessation Smoking history: Current every day smoker Have you smoked in the past 12 months: Yes Aproximately how many cigarettes per day: 20 Cigars Per Day: 0 Hx Chewing Tobacco Use: No Initiated information on smoking cessation: Yes 'Breaking Loose' booklet given: 01/16/20 - Substance & Tx. History Hx Alcohol Use: Yes Hx Substance Use: Yes Substance Use Type: Alcohol, Cocaine, Opiates Hx Substance Use Treatment: Yes ([facility], [place], [place]) - Substances abused Alcohol Substance route: Oral Frequency: Daily Amount used: liquor- 2 pints, beer- 2 six pk Age of first use: 17 Date of last use: 01/15/20 Heroin Substance route: Inhalation Frequency: Daily Amount used: 4 bags Age of first use: 17 Date of last use: 01/16/20 Admission Physical Exam [facility] - Vital Signs Vital Signs: Vital Signs - 24 hr 01/16/20 21:59 Temperature 97.7 F Pulse Rate 78 Respiratory 20 Rate Blood Pressure 152/97 - Physical General Appearance: Yes: Moderate Distress, Tremorous, Irritable, Sweating HEENTM: Yes: Within Normal Limits Respiratory: Yes: Lungs Clear, Normal Breath Sounds, No Respiratory Distress Neck: Yes: Supple Breast: Yes: Breast Exam Deferred Cardiology: Yes: Regular Rhythm, Regular Rate Abdominal: Yes: Normal Bowel Sounds, Soft Genitourinary: Yes: Within Normal Limits Musculoskeletal: Yes: Within Normal Limits Extremities: Yes: Tremors Neurological: Yes: Within Normal Limits Integumentary: Yes: Warm Lymphatic: Yes: Within Normal Limits - Diagnostic (1) Acute bronchitis Current Visit: Yes Status: Chronic Qualifiers: Bronchitis organism: unspecified organism Qualified Code(s): J20.9 - Acute bronchitis, unspecified (2) Alcohol dependence with uncomplicated withdrawal Current Visit: Yes Status: Acute (3) Asthma Current Visit: Yes Status: Chronic Qualifiers: Asthma severity: mild Asthma complication type: unspecified (4) Cocaine dependence Current Visit: No Status: Chronic Qualifiers: Substance use status: uncomplicated Qualified Code(s): F14.20 - Cocaine dependence, uncomplicated (5) HTN (hypertension), benign Current Visit: No Status: Chronic (6) Hard of hearing Current Visit: No Status: Chronic Qualifiers: Contralateral hearing status: unspecified (7) Methadone maintenance therapy patient Current Visit: No Status: Chronic (8) Nicotine dependence Current Visit: No Status: Chronic Qualifiers: Nicotine product type: cigarettes Substance use status: uncomplicated Qualified Code(s): F17.210 - Nicotine dependence, cigarettes, uncomplicated Cleared for Admission [facility] - Detox or Rehab [facility] Level of Care: Medically Managed Detox Regimen/Protocol: Librium Claeared for Rehab Admission: No Breathalyzer - Breathalyzer Breathalyzer: 0 Urine Drug Screen - Test Device Lot number: [id number] Expiration date: 10/28/21 - Control Is test valid?: Yes - Results Drug screen NEGATIVE: No Urine drug screen results: CAITLIN-Cocaine, FEN-Fentanyl, MOP-Opiates Inpatient Rehab Admission - Rehab Decision to Admit Inpatient rehab admission?: No
[2020-01-16] MEDS ORDERED: METHOCARBAMOL 500 MG TABLET PO PRN (22:56)
[2020-01-16] MEDS ORDERED: METHADONE HCL 10 MG TABLET (FOR DETOX USE ONLY) PO ONE (22:56)
[2020-01-16] MEDS ORDERED: MAGNESIUM CITRATE 300 ML BOTTLE PO PRN (22:56)
[2020-01-16] MEDS ORDERED: MAG HYDROX/AL HYDROX/SIMETH 30 ML UNIT-DOSE CUP PO PRN (22:56)
[2020-01-16] MEDS ORDERED: MELATONIN 5 MG TABLETS PO PRN (22:56)
[2020-01-16] MEDS ORDERED: IBUPROFEN 400 MG TABLET (FP) PO PRN (22:56)
[2020-01-16] MEDS ORDERED: MENTHOL/PHENOL 1 EACH UD MM PRN (22:56)
[2020-01-16] MEDS ORDERED: NICOTINE POLACRILEX 2 MG GUM BUC PRN (22:56)
[2020-01-16] MEDS ORDERED: cloNIDine HCL 0.1 MG TABLET PO PRN (22:56)
[2020-01-16] MEDS ORDERED: BISMUTH SUBSALICYLATE 524 MG/30 ML UD PO PRN (22:56)
[2020-01-16] MEDS ORDERED: MAGNESIUM HYDROX 2400MG/30ML ORAL SUSPENSION 30 ML CUP PO PRN (22:56)
[2020-01-16] MEDS ORDERED: ACETAMINOPHEN 325 MG TABLET (FP) PO PRN ×2 (22:56)
[2020-01-16] MEDS ORDERED: ALBUTEROL SO4 HFA INHALER IH PRN (23:00)
[2020-01-17] MEDS ORDERED: amLODIPine BESYLATE 5 MG TABLET (FP) PO SCH (10:00)
[2020-01-17] MEDS ORDERED: NICOTINE 21 MG/24 HOURS TOPICAL PATCH TD SCH (10:00)
[2020-01-17] MEDS ORDERED: METHADONE HCL 5 MG TABLET (FOR DETOX USE ONLY) PO ONE (10:00)
[2020-01-17] MEDS ORDERED: PRENATAL VITAMINS W/ FOLIC ACID TABLET (FP) PO SCH (10:00)
[2020-01-17 11:27] VITALS: BP 118/57; PULSE 69; TEMP 98.4
--- NOTE | 2020-01-17 11:32 | EKG ---
Test Reason : Blood Pressure : / mmHG Vent. Rate : 076 BPM Atrial Rate : 076 BPM P-R Int : 138 ms QRS Dur : 080 ms QT Int : 442 ms P-R-T Axes : 032 078 071 degrees QTc Int : 497 ms NORMAL SINUS RHYTHM WITH SINUS ARRHYTHMIA PROLONGED QT ABNORMAL ECG WHEN COMPARED WITH ECG OF 27-AUG-2018 19:52, QT HAS LENGTHENED Confirmed by MD JOSÉ, DEREK ([id number]) on 01/17/2020 11:32:10 AM Referred By: KENNY BOOTH Confirmed By:DEREK KUMAR MD
--- NOTE | 2020-01-17 11:36 | DS ---
[facility] Detox Discharge Summary Admission Date: 01/16/20 Discharge Date: 01/17/20 - History Present History: Alcohol Dependence, MMTP - Physical Exam Results Vital Signs: Vital Signs Temperature 98.4 F 01/17/20 11:26 Pulse Rate 69 01/17/20 11:26 Respiratory Rate 18 01/17/20 11:26 Blood Pressure 118/57 L 01/17/20 11:26 O2 Sat by Pulse Oximetry (%) - Treatment Hospital Course: Detox Protocol Followed - Medication Discharge Medications: Ambulatory Orders Albuterol Sulfate [Proair Hfa -] 2 inh PO Q6H PRN 03/06/15 Hydroxyzine HCl 50 mg PO HS 12/06/17 Amlodipine Besylate [Norvasc -] 5 mg PO DAILY tablet 08/28/18 Benztropine Mesylate [Cogentin -] 1 mg PO HS #30 tablet 10/12/18 Risperidone [Risperdal] 1 mg PO BID #60 tablet 10/12/18 - Diagnosis (1) Alcohol dependence with uncomplicated withdrawal Current Visit: Yes Status: Chronic (2) Bipolar disorder Current Visit: No Status: Chronic (3) Cocaine dependence Current Visit: Yes Status: Chronic Qualifiers: Substance use status: uncomplicated Qualified Code(s): F14.20 - Cocaine dependence, uncomplicated (4) HTN (hypertension), benign Current Visit: Yes Status: Chronic (5) Hard of hearing Current Visit: No Status: Chronic Qualifiers: Contralateral hearing status: unspecified (6) Methadone maintenance therapy patient Current Visit: Yes Status: Chronic (7) Nicotine dependence Current Visit: No Status: Chronic Qualifiers: Nicotine product type: cigarettes Substance use status: uncomplicated Qualified Code(s): F17.210 - Nicotine dependence, cigarettes, uncomplicated - AMA Did Patient Leave Against Medical Advice: Yes (pt want out , doesn't want to stay in detox.)
[2020-01-17 12:02] LABS: HEMATOCRIT 41.7 % (32.4-45.2); HEMOGLOBIN 13.8 GM/dL (10.7-15.3); MCH 28.4 pg (25.7-33.7); MEAN PLT VOLUME 9.6 fl (7.5-11.1); PLATELET COUNT 242 K/MM3 (134-434); RBC 4.85 M/mm3 (3.60-5.2); RDW 13.8 % (11.6-15.6); WHITE BLOOD COUNT 7.3 K/mm3 (4.0-10.0)
[2020-01-17 12:11] LABS: BILIRUBIN,TOTAL 0.4 mg/dL (0.2-1); BLOOD UREA NITROGEN 13.5 mg/dL (7-18); CREATININE 0.7 mg/dL (0.55-1.3)
[2020-01-17] MEDS ORDERED: THIAMINE HCL 100 MG TABLET (FP) PO SCH (22:00)
[2020-01-18] MEDS ORDERED: METHADONE HCL 10 MG TABLET (FOR DETOX USE ONLY) PO ONE (10:00)
[2020-01-18 12:03] LABS: RPR REACTIVE 1:2 (NONREACTIVE); TREPONEMA ANTIBODY PREVIOUSLY REACTIVE (NONREACTIVE)
[2020-01-19] MEDS ORDERED: METHADONE HCL 5 MG TABLET (FOR DETOX USE ONLY) PO ONE (06:00)
== END 2020-01-17 12:31 | disposition left against medical advice (07) | DRG 770 ==
LOC: YASAS 18:53 → Y6N 22:00
PROVIDERS: ADMIT Allergy & Immunology; ATTEND Allergy & Immunology
PROC: HZ2ZZZZ Detoxification Services for Substance Abuse Treatment (ICD-10-PCS; principal; 2020-01-16)
DX: F10.230 Alcohol dependence with withdrawal, uncomplicated (principal); F11.20 Opioid dependence, uncomplicated; F14.20 Cocaine dependence, uncomplicated; F17.210 Nicotine dependence, cigarettes, uncomplicated; F20.9 Schizophrenia, unspecified; F31.9 Bipolar disorder, unspecified; I10 Essential (primary) hypertension; J20.9 Acute bronchitis, unspecified; J45.20 Mild intermittent asthma, uncomplicated; H91.90 Unspecified hearing loss, unspecified ear; Z86.19 Personal history of other infectious and parasitic diseases; Z91.018 Allergy to other foods; Z91.5 Personal history of self-harm
CPT/HCPCS: 36415; 80053; 85027; 86593; 86780; 93005; 93010

== ENCOUNTER 2020-12-23 08:00 | Inpatient (IN) | payer OTHER ==
[2020-12-23 09:37] VITALS: BMI 30.9
[2020-12-23] MEDS ORDERED: LISINOPRIL 10 MG TABLET PO ONE (09:54)
[2020-12-23] MEDS ORDERED: cloNIDine HCL 0.1 MG TABLET PO PRN (10:02)
[2020-12-23] MEDS ORDERED: MENTHOL/PHENOL 1 EACH UD MM PRN (10:02)
[2020-12-23] MEDS ORDERED: MAGNESIUM CITRATE 300 ML BOTTLE PO PRN (10:02)
[2020-12-23] MEDS ORDERED: MAG HYDROX/AL HYDROX/SIMETH 30 ML UNIT-DOSE CUP PO PRN (10:02)
[2020-12-23] MEDS ORDERED: METHOCARBAMOL 500 MG TABLET PO PRN (10:02)
[2020-12-23] MEDS ORDERED: ONDANSETRON *ODT* 4 MG TABLET SL PRN (10:02)
[2020-12-23] MEDS ORDERED: NICOTINE POLACRILEX 2 MG GUM BUC PRN (10:02)
[2020-12-23] MEDS ORDERED: IBUPROFEN 400 MG TABLET (FP) PO PRN (10:02)
[2020-12-23] MEDS ORDERED: ALBUTEROL SO4 HFA INHALER IH PRN (10:02)
[2020-12-23] MEDS ORDERED: BISMUTH SUBSALICYLATE 262 MG/15 ML BTL PO PRN (10:02)
[2020-12-23] MEDS ORDERED: ACETAMINOPHEN 325 MG TABLET (FP) PO PRN ×2 (10:02)
[2020-12-23] MEDS ORDERED: METHADONE HCL 10 MG TABLET (FOR DETOX USE ONLY) PO ONE (10:02)
[2020-12-23] MEDS ORDERED: MAGNESIUM HYDROX 2400MG/30ML ORAL SUSPENSION 30 ML CUP PO PRN (10:02)
[2020-12-23] MEDS ORDERED: LISINOPRIL 10 MG TABLET ONE (10:24)
[2020-12-23] MEDS: NICOTINE 7 MG/24 HOURS TOPICAL PATCH TD SCH (11:45)
[2020-12-23] MEDS: hydrOXYzine PAMOATE 25 MG CAPSULE (FP) PO SCH ×3 (14:29→22:27)
[2020-12-23 15:41] LABS: POTASSIUM 3.3 mmol/L (3.5-5.1)
[2020-12-23 15:44] LABS: CALCIUM 8.9 mg/dL (8.5-10.1)
[2020-12-23 15:45] LABS: BLOOD UREA NITROGEN 12.8 mg/dL (7-18)
[2020-12-23 15:46] LABS: HEMATOCRIT 41.7 % (32.4-45.2); HEMOGLOBIN 13.6 GM/dL (10.7-15.3); MCH 28.6 pg (25.7-33.7); MCHC 32.6 g/dl (32.0-36.0); MEAN CELL VOLUME 87.7 fl (80-96); MEAN PLT VOLUME 9.5 fl (7.5-11.1); PLATELET COUNT 218 K/MM3 (134-434); RBC 4.76 M/mm3 (3.60-5.2); WHITE BLOOD COUNT 8.7 K/mm3 (4.0-10.0)
[2020-12-23 15:48] LABS: CREATININE 0.6 mg/dL (0.55-1.3)
[2020-12-23 15:50] LABS: BILIRUBIN,TOTAL 0.5 mg/dL (0.2-1); TOT PROT 7.3 g/dl (6.4-8.2)
[2020-12-23] MEDS ORDERED: MELATONIN 5 MG TABLETS PO SCH (22:00)
[2020-12-23] MEDS ORDERED: THIAMINE HCL 100 MG TABLET (FP) PO SCH (22:00)
[2020-12-23 22:03] VITALS: BP 152/74; PULSE 58; TEMP 97.7
[2020-12-24] MEDS: hydrOXYzine PAMOATE 25 MG CAPSULE (FP) PO SCH ×2 (07:05→12:13)
[2020-12-24] MEDS ORDERED: METHADONE HCL 10 MG TABLET (FOR DETOX USE ONLY) ONE (09:01)
[2020-12-24] MEDS ORDERED: METHADONE HCL 5 MG TABLET (FOR DETOX USE ONLY) ONE (09:01)
[2020-12-24] MEDS ORDERED: PRENATAL VITAMINS W/ FOLIC ACID TABLET (FP) PO SCH (10:00)
[2020-12-24] MEDS ORDERED: METHADONE (DETOX) 20 MG, METHADONE (DETOX) 5 MG PO ONE (10:00)
[2020-12-24] MEDS ORDERED: POTASSIUM CHLORIDE ORAL LIQUID 20 MEQ/15 ML PO ONE ×2 (10:10→15:00)
[2020-12-24] MEDS ORDERED: LISINOPRIL 10 MG TABLET PO SCH (10:15)
[2020-12-24] MEDS ORDERED: hydrOXYzine PAMOATE 50 MG CAPSULE (FP) PO PRN (10:17)
[2020-12-24] MEDS: NICOTINE 7 MG/24 HOURS TOPICAL PATCH TD SCH (12:12)
[2020-12-25] MEDS ORDERED: METHADONE HCL 10 MG TABLET (FOR DETOX USE ONLY) PO ONE (10:00)
[2020-12-26] MEDS ORDERED: METHADONE (DETOX) 10 MG, METHADONE (DETOX) 5 MG PO ONE (10:00)
[2020-12-27] MEDS ORDERED: METHADONE HCL 10 MG TABLET (FOR DETOX USE ONLY) PO ONE (10:00)
[2020-12-28] MEDS ORDERED: METHADONE HCL 5 MG TABLET (FOR DETOX USE ONLY) PO ONE (06:00)
== END 2020-12-24 13:24 | disposition left against medical advice (07) | DRG 770 ==
LOC: YASAS 08:00 → Y6N 09:41
PROVIDERS: ADMIT Allergy & Immunology; ATTEND Allergy & Immunology
PROC: HZ2ZZZZ Detoxification Services for Substance Abuse Treatment (ICD-10-PCS; principal; 2020-12-23)
DX: F11.23 Opioid dependence with withdrawal (principal); F10.230 Alcohol dependence with withdrawal, uncomplicated; F14.20 Cocaine dependence, uncomplicated; F17.210 Nicotine dependence, cigarettes, uncomplicated; F20.9 Schizophrenia, unspecified; F32.9 Major depressive disorder, single episode, unspecified; A53.0 Latent syphilis, unspecified as early or late; I10 Essential (primary) hypertension; J45.909 Unspecified asthma, uncomplicated; H91.90 Unspecified hearing loss, unspecified ear; Z98.890 Other specified postprocedural states; Z56.0 Unemployment, unspecified; Z59.0 Homelessness; Z91.018 Allergy to other foods
CPT/HCPCS: 36415; 71045-TC-FY; 80053; 81025; 85027; 86593; 86780; 93005; 93010; C9803; U0003

== ENCOUNTER 2021-08-25 19:10 | Inpatient (IN) | payer OTHER ==
[2021-08-25 21:05] VITALS: BMI 25.9
[2021-08-25] MEDS ORDERED: NICOTINE 10 MG CARTRIDGE (INHALER) IH PRN (22:22)
[2021-08-25] MEDS ORDERED: P-EPHED 60MG/TRIPROLIDI 2.5MG TABLET PO PRN (22:22)
[2021-08-25] MEDS ORDERED: cloNIDine HCL 0.1 MG TABLET PO PRN (22:22)
[2021-08-25] MEDS ORDERED: BISMUTH SUBSALICYLATE 524 MG/30 ML PO PRN (22:22)
[2021-08-25] MEDS ORDERED: MAGNESIUM HYDROX 2400MG/30ML ORAL SUSPENSION 30 ML CUP PO PRN (22:22)
[2021-08-25] MEDS ORDERED: methaDONE HCL 10 MG TABLET (FOR DETOX USE ONLY) PO ONE (22:22)
[2021-08-25] MEDS ORDERED: NALOXONE HCL 0.4 MG/ML VIAL IM PRN (22:22)
[2021-08-25] MEDS ORDERED: guaiFENesin 200 MG/10 ML 10 ML UNIT-DOSE CUPS PO PRN (22:22)
[2021-08-25] MEDS ORDERED: clonazePAM 0.5 MG ODT TABLETS SL PRN (22:22)
[2021-08-25] MEDS ORDERED: ACETAMINOPHEN 325 MG TABLET (FP) PO PRN ×2 (22:22)
[2021-08-25] MEDS ORDERED: IBUPROFEN 400 MG TABLET (FP) PO PRN (22:22)
[2021-08-25] MEDS ORDERED: NALOXONE (NARCAN) HCL 4 MG/0.1 ML SPRAY NS PRN (22:22)
[2021-08-25] MEDS ORDERED: MENTHOL/PHENOL 1 EACH UD MM PRN (22:22)
[2021-08-25] MEDS ORDERED: MAG HYDROX/AL HYDROX/SIMETH 30 ML UNIT-DOSE CUP PO PRN (22:22)
[2021-08-25] MEDS ORDERED: DICYCLOMINE HCL 10 MG CAPSULE PO PRN (22:22)
[2021-08-25] MEDS ORDERED: METHOCARBAMOL 500 MG TABLET PO PRN (22:22)
[2021-08-25] MEDS ORDERED: MAGNESIUM CITRATE 300 ML BOTTLE PO PRN (22:22)
[2021-08-25] MEDS ORDERED: diazePAM 5 MG TABLET PO PRN (22:22)
[2021-08-25] MEDS ORDERED: ONDANSETRON *ODT* 4 MG TABLET SL PRN (22:22)
[2021-08-26] MEDS: diazePAM 5 MG TABLET PO SCH ×3 (01:28→11:16)
[2021-08-26] MEDS ORDERED: methaDONE HCL 10 MG TABLET (FOR DETOX USE ONLY) PO ONE ×2 (01:45)
[2021-08-26] MEDS: PRENATAL VITAMINS W/ FOLIC ACID TABLET (FP) PO SCH (11:20)
[2021-08-26] MEDS: LISINOPRIL 10 MG TABLET PO SCH ×2 (11:21→22:23)
[2021-08-26] MEDS: NICOTINE 14 MG/24 HOURS TOPICAL PATCH TD SCH (11:21)
[2021-08-26 11:47] LABS: HEMOGLOBIN 13.7 GM/dL (10.7-15.3); MCH 28.4 pg (25.7-33.7); MCHC 32.6 g/dl (32.0-36.0); MEAN CELL VOLUME 87.1 fl (80-96); MEAN PLT VOLUME 9.2 fl (7.5-11.1); PLATELET COUNT 232 10^3/uL (134-434); RBC 4.82 M/mm3 (3.60-5.2); RDW 13.7 % (11.6-15.6); WHITE BLOOD COUNT 7.4 K/mm3 (4.0-10.0)
[2021-08-26 12:04] LABS: CALCIUM 9.2 mg/dL (8.5-10.1)
[2021-08-26 12:05] LABS: BLOOD UREA NITROGEN 11.4 mg/dL (7-18)
[2021-08-26 12:09] LABS: BILIRUBIN,TOTAL 0.4 mg/dL (0.2-1); CREATININE 0.6 mg/dL (0.55-1.3); TOT PROT 6.3 g/dl (6.4-8.2)
[2021-08-26 12:10] LABS: ALBUMIN 3.2 g/dl (3.4-5.0)
[2021-08-26 17:25] VITALS: BP 140/111; PULSE 66; TEMP 100
[2021-08-26] MEDS ORDERED: MELATONIN 5 MG TABLETS PO SCH (22:00)
[2021-08-26] MEDS ORDERED: THIAMINE HCL 100 MG TABLET (FP) PO SCH (22:00)
[2021-08-27] MEDS ORDERED: diazePAM 5 MG TABLET PO SCH (06:00)
[2021-08-27] MEDS ORDERED: methaDONE HCL 10 MG TABLET (FOR DETOX USE ONLY) PO ONE (10:00)
[2021-08-27] MEDS: PRENATAL VITAMINS W/ FOLIC ACID TABLET (FP) PO SCH (10:16)
[2021-08-27] MEDS: NICOTINE 14 MG/24 HOURS TOPICAL PATCH TD SCH (10:16)
[2021-08-27] MEDS: LISINOPRIL 10 MG TABLET PO SCH (10:16)
[2021-08-28] MEDS ORDERED: diazePAM 5 MG TABLET PO SCH (06:00)
[2021-08-29] MEDS ORDERED: diazePAM 5 MG TABLET PO ONE (06:00)
[2021-08-29] MEDS ORDERED: methaDONE HCL 10 MG TABLET (FOR DETOX USE ONLY) PO ONE (10:00)
== END 2021-08-27 09:54 | disposition left against medical advice (07) | DRG 770 ==
LOC: YASAS 19:10 → Y6N 22:34
PROVIDERS: ADMIT Allergy & Immunology; ATTEND Allergy & Immunology
PROC: HZ2ZZZZ Detoxification Services for Substance Abuse Treatment (ICD-10-PCS; principal; 2021-08-25)
DX: F11.23 Opioid dependence with withdrawal (principal); F10.230 Alcohol dependence with withdrawal, uncomplicated; F14.20 Cocaine dependence, uncomplicated; F17.210 Nicotine dependence, cigarettes, uncomplicated; I10 Essential (primary) hypertension; J45.20 Mild intermittent asthma, uncomplicated; H91.93 Unspecified hearing loss, bilateral; Z86.11 Personal history of tuberculosis; Z56.0 Unemployment, unspecified; Z59.0 Homelessness
CPT/HCPCS: 36415; 80053; 81025; 85027; 86593; 86780; C9803; J0735; U0003; U0005

== ENCOUNTER 2022-04-12 12:52 | Emergency (ER) | payer OTHER ==
[2022-04-12 12:57] VITALS: BP 148/94; PULSE 93; TEMP 98; BMI 23.8
[2022-04-12] MEDS ORDERED: diazePAM 5 MG TABLET PO ONE (14:17)
[2022-04-12] MEDS ORDERED: KETOROLAC TROMETHAMINE 30 MG/1 ML VIAL IVPUSH ONE (14:17)
[2022-04-12] MEDS ORDERED: SODIUM CHLORIDE 0.9% 500 ML INFUS.BAG IV ONE (14:18)
[2022-04-12] MEDS ORDERED: diazePAM 5 MG TABLET ONE (14:30)
[2022-04-12] MEDS ORDERED: KETOROLAC TROMETHAMINE 30 MG/1 ML VIAL ONE (14:31)
[2022-04-12 14:42] LABS: EOS % 3.9 % (0-4.5); HEMATOCRIT 38.5 % (32.4-45.2); HEMOGLOBIN 12.7 GM/dL (10.7-15.3); LYMPH % 30.1 % (8-40); MCH 28.5 pg (25.7-33.7); MCHC 32.9 g/dl (32.0-36.0); MEAN CELL VOLUME 86.5 fl (80-96); MEAN PLT VOLUME 8.2 fl (7.5-11.1); MONO % 7.7 % (3.8-10.2); NEUT % 57.3 % (42.8-82.8); PLATELET COUNT 197 10^3/uL (134-434); RBC 4.45 M/mm3 (3.60-5.2); RDW 13.7 % (11.6-15.6); WHITE BLOOD COUNT 6.4 K/mm3 (4.0-10.0)
[2022-04-12 14:57] LABS: CALCIUM 9.1 mg/dL (8.5-10.1)
[2022-04-12 14:58] LABS: BLOOD UREA NITROGEN 9.3 mg/dL (7-18)
[2022-04-12 15:01] LABS: CREATININE 0.5 mg/dL (0.55-1.3)
== END 2022-04-12 20:45 | disposition home or self-care (01) ==
LOC: JER 12:52
PROC: 3E0233Z Introduction of Anti-inflammatory into Muscle, Percutaneous Approach (ICD-10-PCS; principal; 2022-04-12)
DX: V20.5XXA Motorcycle passenger injured in collision with pedestrian or animal in traffic accident, initial encounter (principal)
CPT/HCPCS: 36415; 70450-TC; 71260-TC; 72125-TC; 72128-TC; 72131-TC; 74177-TC; 80048; 85025; 99285-25; Q9967

== ENCOUNTER 2022-04-15 18:58 | Inpatient (IN) | payer OTHER ==
[2022-04-15] MEDS ORDERED: ACETAMINOPHEN 325 MG TABLET (FP) PO PRN ×2 (21:52)
[2022-04-15] MEDS ORDERED: IBUPROFEN 400 MG TABLET (FP) PO PRN (21:52)
[2022-04-15] MEDS ORDERED: NICOTINE POLACRILEX 2 MG GUM BUC PRN (21:52)
[2022-04-15] MEDS ORDERED: DICYCLOMINE HCL 10 MG CAPSULE PO PRN (21:52)
[2022-04-15] MEDS ORDERED: BISMUTH SUBSALICYLATE 524 MG/30 ML PO PRN (21:52)
[2022-04-15] MEDS ORDERED: ONDANSETRON *ODT* 4 MG TABLET SL PRN (21:52)
[2022-04-15] MEDS ORDERED: MAGNESIUM CITRATE 300 ML BOTTLE PO PRN (21:52)
[2022-04-15] MEDS ORDERED: BENZOCAINE/MENTHOL (CHLORASEPTIC ) LOZENGE MM PRN (21:52)
[2022-04-15] MEDS ORDERED: LOPERAMIDE HCL 2 MG CAPSULE PO PRN (21:52)
[2022-04-15] MEDS ORDERED: MAGNESIUM HYDROX 2400MG/30ML ORAL SUSPENSION 30 ML CUP PO PRN (21:52)
[2022-04-15] MEDS ORDERED: MAG HYDROX/AL HYDROX/SIMETH 30 ML UNIT-DOSE CUP PO PRN (21:52)
[2022-04-15] MEDS ORDERED: METHOCARBAMOL 500 MG TABLET PO PRN (21:52)
[2022-04-15 22:00] VITALS: BMI 22.8
[2022-04-15] MEDS ORDERED: THIAMINE HCL 100 MG TABLET (FP) PO SCH (22:00)
[2022-04-15] MEDS ORDERED: MELATONIN 5 MG TABLETS PO SCH (22:00)
[2022-04-16] MEDS ORDERED: NICOTINE 14 MG/24 HOURS TOPICAL PATCH TD SCH (10:00)
[2022-04-16] MEDS ORDERED: PRENATAL VITAMINS W/ FOLIC ACID TABLET (FP) PO SCH (10:00)
[2022-04-16 10:36] VITALS: BP 162/72; PULSE 82; TEMP 98.1
[2022-04-16 10:43] LABS: HEMATOCRIT 42.7 % (32.4-45.2); HEMOGLOBIN 13.4 GM/dL (10.7-15.3); MCH 27.6 pg (25.7-33.7); MCHC 31.4 g/dl (32.0-36.0); MEAN CELL VOLUME 87.8 fl (80-96); MEAN PLT VOLUME 8.9 fl (7.5-11.1); PLATELET COUNT 201 10^3/uL (134-434); RBC 4.86 M/mm3 (3.60-5.2); RDW 13.6 % (11.6-15.6)
[2022-04-16 11:08] LABS: CALCIUM 9.1 mg/dL (8.5-10.1)
[2022-04-16 11:09] LABS: ALBUMIN 3.4 g/dl (3.4-5.0); BLOOD UREA NITROGEN 22.2 mg/dL (7-18)
[2022-04-16 11:12] LABS: CREATININE 0.7 mg/dL (0.55-1.3)
[2022-04-16 11:14] LABS: BILIRUBIN,TOTAL 0.6 mg/dL (0.2-1); TOT PROT 6.3 g/dl (6.4-8.2)
[2022-04-16] MEDS ORDERED: NALOXONE (NARCAN) HCL 4 MG/0.1 ML SPRAY NS PRN (11:44)
[2022-04-16] MEDS ORDERED: ALBUTEROL SO4 HFA INHALER IH PRN (11:44)
[2022-04-16] MEDS ORDERED: LISINOPRIL 10 MG TABLET PO SCH (11:45)
[2022-04-16] MEDS ORDERED: LISINOPRIL 10 MG TABLET ONE (11:53)
== END 2022-04-17 07:16 | disposition home or self-care (01) | DRG 773 ==
LOC: YASAS 18:58 → Y3N 04-16 11:39
PROVIDERS: ADMIT Allergy & Immunology; ATTEND Surgery
PROC: HZ2ZZZZ Detoxification Services for Substance Abuse Treatment (ICD-10-PCS; principal; 2022-04-16)
DX: F11.23 Opioid dependence with withdrawal (principal); F10.230 Alcohol dependence with withdrawal, uncomplicated; F14.20 Cocaine dependence, uncomplicated; F17.210 Nicotine dependence, cigarettes, uncomplicated; F31.9 Bipolar disorder, unspecified; F41.9 Anxiety disorder, unspecified; F20.9 Schizophrenia, unspecified; J45.20 Mild intermittent asthma, uncomplicated; I10 Essential (primary) hypertension; Z86.11 Personal history of tuberculosis; Z91.51 Personal history of suicidal behavior; Z28.310 Unvaccinated for COVID-19
CPT/HCPCS: 36415; 80053; 85027; 86593; 86780; C9803-CS; U0003; U0005

== ENCOUNTER 2022-09-02 10:44 | Emergency (ER) | payer OTHER ==
[2022-09-02 11:16] VITALS: BP 111/65; PULSE 98; RESP 20; TEMP 98.4; BMI 36.3
[2022-09-02] MEDS ORDERED: KETOROLAC TROMETHAMINE 30 MG/1 ML VIAL IM ONE (12:31)
[2022-09-02] MEDS ORDERED: CYCLOBENZAPRINE HCL 10 MG TABLET (FP) PO ONE (12:31)
[2022-09-02] MEDS ORDERED: ACETAMINOPHEN 500 MG TABLET (FP) PO ONE (12:31)
[2022-09-02] MEDS ORDERED: CYCLOBENZAPRINE HCL 10 MG TABLET (FP) ONE (12:38)
[2022-09-02] MEDS ORDERED: KETOROLAC TROMETHAMINE 30 MG/1 ML VIAL ONE (12:38)
[2022-09-02] MEDS ORDERED: ACETAMINOPHEN 500 MG TABLET (FP) ONE (12:39)
== END 2022-09-02 16:11 | disposition home or self-care (01) ==
LOC: JERFT 10:44
PROC: 3E0233Z Introduction of Anti-inflammatory into Muscle, Percutaneous Approach (ICD-10-PCS; principal; 2022-09-02)
DX: M54.50 Low back pain, unspecified (principal)
CPT/HCPCS: 72131-TC; 99284-25

== ENCOUNTER 2023-05-14 20:03 | Inpatient (IN) | payer OTHER ==
[2023-05-14 20:56] VITALS: BMI 26.2
[2023-05-14] MEDS ORDERED: IBUPROFEN 600 MG TABLET (FP) PO PRN ×2 (23:42→23:51)
[2023-05-14] MEDS ORDERED: ALBUTEROL SO4 HFA INHALER IH PRN (23:42)
[2023-05-14] MEDS ORDERED: NALOXONE (NARCAN) HCL 4 MG/0.1 ML SPRAY NS PRN (23:42)
[2023-05-14] MEDS ORDERED: NALOXONE HCL (KLOXXADO) 8 MG SPRAY NS PRN (23:51)
[2023-05-14] MEDS ORDERED: POLYETHYLENE GLYCOL (HEALTHYLAX) 3350 17 GM PACKET PO PRN (23:51)
[2023-05-14] MEDS ORDERED: IBUPROFEN 400 MG TABLET (FP) PO PRN (23:51)
[2023-05-14] MEDS ORDERED: DICYCLOMINE HCL 10 MG CAPSULE PO PRN (23:51)
[2023-05-14] MEDS ORDERED: P-EPHED 60MG/TRIPROLIDI 2.5MG TABLET PO PRN (23:51)
[2023-05-14] MEDS ORDERED: BISMUTH SUBSALICYLATE 524 MG/30 ML PO PRN (23:51)
[2023-05-14] MEDS ORDERED: LOPERAMIDE HCL 2 MG CAPSULE PO PRN (23:51)
[2023-05-14] MEDS ORDERED: MELATONIN 5 MG TABLETS PO PRN (23:51)
[2023-05-14] MEDS ORDERED: hydrOXYzine PAMOATE 25 MG CAPSULE (FP) PO PRN (23:51)
[2023-05-14] MEDS ORDERED: BENZOCAINE/MENTHOL (CHLORASEPTIC ) LOZENGE MM PRN (23:51)
[2023-05-14] MEDS ORDERED: BENZONATATE 200 MG CAPSULE PO PRN (23:51)
[2023-05-14] MEDS ORDERED: MAGNESIUM HYDROX 2400MG/30ML ORAL SUSPENSION 30 ML CUP PO PRN (23:51)
[2023-05-14] MEDS ORDERED: NICOTINE POLACRILEX 2 MG GUM BUC PRN (23:51)
[2023-05-14] MEDS ORDERED: ACETAMINOPHEN 325 MG TABLET (FP) PO PRN (23:51)
[2023-05-14] MEDS ORDERED: NICOTINE 10 MG CARTRIDGE (INHALER) IH PRN (23:51)
[2023-05-14] MEDS ORDERED: ONDANSETRON *ODT* 4 MG TABLET SL PRN (23:51)
[2023-05-14] MEDS ORDERED: MAG HYDROX/AL HYDROX/SIMETH 30 ML UNIT-DOSE CUP PO PRN (23:51)
[2023-05-14] MEDS ORDERED: guaiFENesin 600 MG TABLET.ER (FP) PO PRN (23:51)
[2023-05-14] MEDS ORDERED: NALOXONE HCL 0.4 MG/ML VIAL IM PRN (23:51)
[2023-05-14] MEDS ORDERED: diazePAM 5 MG TABLET PO PRN (23:54)
[2023-05-15 04:24] VITALS: BP 136/84; PULSE 59; RESP 17; TEMP 98.4
[2023-05-15] MEDS ORDERED: PRENATAL VITAMINS W/ FOLIC ACID TABLET (FP) PO SCH (10:00)
[2023-05-15] MEDS ORDERED: NICOTINE 7 MG/24 HOURS TOPICAL PATCH TD SCH (10:00)
[2023-05-15 10:51] LABS: ALBUMIN 2.9 g/dl (3.4-5.0); BLOOD UREA NITROGEN 6.8 mg/dL (7-18); CALCIUM 8.9 mg/dL (8.5-10.1)
[2023-05-15 10:54] LABS: CREATININE 0.5 mg/dL (0.55-1.3)
[2023-05-15 10:56] LABS: BILIRUBIN,TOTAL 0.2 mg/dL (0.2-1)
[2023-05-15 11:17] LABS: HEMATOCRIT 35.8 % (32.4-45.2); HEMOGLOBIN 11.8 GM/dL (10.7-15.3); MCH 27.5 pg (25.7-33.7); MEAN CELL VOLUME 83.3 fl (80-96); MEAN PLT VOLUME 8.5 fl (7.5-11.1); PLATELET COUNT 307 10^3/uL (134-434); RDW 13.4 % (11.6-15.6); WHITE BLOOD COUNT 7.6 K/mm3 (4.0-10.0)
[2023-05-15] MEDS ORDERED: THIAMINE HCL 100 MG TABLET (FP) PO SCH (22:00)
== END 2023-05-15 14:58 | disposition home or self-care (01) | DRG 773 ==
LOC: YASAS 20:03 → Y6N 05-15 02:07
PROVIDERS: ADMIT Allergy & Immunology; ATTEND Allergy & Immunology
PROC: HZ2ZZZZ Detoxification Services for Substance Abuse Treatment (ICD-10-PCS; principal; 2023-05-14)
DX: F14.20 Cocaine dependence, uncomplicated (principal); F11.20 Opioid dependence, uncomplicated; F10.10 Alcohol abuse, uncomplicated; F17.210 Nicotine dependence, cigarettes, uncomplicated; F31.9 Bipolar disorder, unspecified; F20.9 Schizophrenia, unspecified; I10 Essential (primary) hypertension; J45.20 Mild intermittent asthma, uncomplicated; H91.90 Unspecified hearing loss, unspecified ear; Z28.310 Unvaccinated for COVID-19; Z28.9 Immunization not carried out for unspecified reason
CPT/HCPCS: 36415; 80053; 85027; 86593; 86780; 87635